=== PATIENT | male | born 1970 | race Hispanic/Latino ===

== ENCOUNTER 2025-02-19 17:32 | Emergency (ER) | payer BC, OTHER ==
[~2025-02-19] VITALS: Ht 167.6 cm; Wt 88.5 kg
--- NOTE | 2025-02-19 17:58 | ERN ---
ED Note History of Present Illness Stated Complaint: HYPERTENSION Chief Complaint: Hypertension Time Seen by MD: 17:33 Time Seen by Midlevel: 17:33 Dictation: The patient is a 54-year-old male with a history of diabetes, hypertension who presents to the emergency department with complaints of elevated blood pressure and generalized weakness onset yesterday. Patient reports he took his blood pressure this morning and it was in the 160s. Patient also reported chest pain yesterday that lasted about 2-3 hours. Reported pressure-like associated with shortness of breath. Patient denies any nausea or vomiting. Denies any fevers or cough. Denies any current chest pain. Allergies: Coded Allergies: No Known Drug Allergies (Unverified Allergy, Unknown, 02/19/25) Past Medical History Past Medical History: Diabetes-Type II, High Cholesterol, Hypertension Surgical History: None RN Note Reviewed/Agreed w/PFSH: Yes Review of System Dictation Constitutional: Negative for fever,chills, and weight loss Eyes: Negative for injury, pain,redness, and discharge ENT: Negative for injury,pain or swelling Cardiovascular: Negative for palpitations, and edema positive for chest pain Respiratory: Negative for shortness of breath, cough, and wheezing, Abdomen/GI: Negative for abdominal pain, nausea, vomiting, diarrhea, and constipation Back: Negative for injury and pain : Negative for injury, bleeding and discharge MS/Extremity: Negative for injury and deformity Skin: Negative for rash, and discoloration Neuro: Negative for headache, numbness, tingling, and seizure positive for weakness Psych: Negative for suicide ideation, homicidal ideation, and hallucinations Initial Vital Sign VS Vital Signs Date Time Temp Pulse Resp B/P (MAP) Pulse Ox O2 Delivery O2 Flow Rate FiO2 02/19/25 17:40 97.9 76 18 155/105 98 Room Air 0 02/19/25 18:35 21 Physical Exam Dictation Vital Signs reviewed General Appearance: Alert, oriented x 3, no acute distress, well developed, nourished. Head and Face: non-traumatic. Eyes: PERRL, pink conjunctivas, eyelid no trauma, anterior chamber with arcus senilis. Ears: Pinnas intact and no signs of trauma or erythema ear canals clear and no discharge TM no erythema Nose: No discharge, no bleeding. Oropharynx: Mouth normal, tongue pink. pharynx clear,no erythema, tonsils no exudates, no abscesses noted, mucous membrane moist Neck: Supple, non-tender, no thyromegaly, no masses, no JVD, no bruits Breast:Deferred Chest:No tenderness, no crepitus, no paradoxical movement, no retractions Lungs:Clear, well-ventilated, symmetric, no rales, no wheezing, no rhonchi, no stridor, good breath sounds bilaterally Heart: Regular rate, regular rhythm, no murmur, no gallops Vascular: no peripheral edema, Abdomen: Soft, positive bowel sounds, nondistended, no guarding, nontender, no rebound, no masses no hepatomegaly, no splenomegaly, no Olivo's sign, no hernias. Rectal: Deferred Genital: Deferred Neurological: Normal speech, motor function intact, sensory function intact , upper extremities equal in strength, lower extremities equal in strength Musculoskeletal: Neck nontender, full range of motion, back nontender, full range of motion, Extremities: nontender, full range of motion Skin: Color pink, dry, no turgor, no rash, no lacerations, no abrasions, no contusions. Lymphatic: Deferred Results (Laboratory/Radiology) Laboratory/Radiology Laboratory Tests Test 02/19/25 18:38 02/19/25 18:42 02/19/25 19:54 White Blood Count 6.4 K/uL (4.8-10.8) Red Blood Count 5.91 MIL/uL (4.50-6.20) Hemoglobin 16.8 g/dL (14.0-18.0) Hematocrit 49.5 % (42-54) Mean Corpuscular Volume 83.8 fL (79-99) Mean Corpuscular Hemoglobin 28.4 pg (27.0-33.0) Mean Corpuscular Hemoglobin Concent 33.9 g/dL (32.0-36.0) Red Cell Distribution Width 13.1 % (11.0-15.5) Platelet Count 246 K/uL (130-400) Mean Platelet Volume 10.9 fL (7.5-10.5) H Immature Granulocyte % (Auto) 0.2 % (0-1) Neutrophils (%) (Auto) 58.1 % (40.0-77.0) Lymphocytes (%) (Auto) 31.6 % (21.0-51.0) Monocytes (%) (Auto) 7.9 % (3.0-13.0) Eosinophils (%) (Auto) 1.9 % (0.0-8.0) Basophils (%) (Auto) 0.3 % (0.0-5.0) Neutrophils # (Auto) 3.7 K/uL (1.8-7.7) Lymphocytes # (Auto) 2.0 K/uL (1.0-4.8) Monocytes # (Auto) 0.5 K/uL (0.1-1.0) Eosinophils # (Auto) 0.12 K/uL (0.00-0.70) Basophils # (Auto) 0.02 K/uL (0.00-0.20) Absolute Immature Granulocyte (auto 0.01 K/uL (0-1) Nucleated Red Blood Cells 0.0 % (0.0-0.19) Sodium Level 140 mmol/L (136-145) Potassium Level 4.3 mmol/L (3.5-5.1) Chloride Level 104 mmol/L (101-111) Carbon Dioxide Level 27 mmol/L (21-32) Blood Urea Nitrogen 13 mg/dL (7-18) Creatinine 1.1 mg/dL (0.5-1.3) Glomerular Filtration Rate Calc 79 mL/min (>90) Random Glucose 128 mg/dL (70-105) H Total Calcium 8.5 mg/dL (8.5-10.1) Magnesium Level 2.20 mg/dL (1.80-2.40) Total Bilirubin 1.4 mg/dL (0.2-1.0) H Direct Bilirubin 0.1 mg/dL (0.0-0.3) Aspartate Amino Transf (AST/SGOT) 55 U/L (10-37) H Alanine Aminotransferase (ALT/SGPT) 43 U/L (12-78) Alkaline Phosphatase 83 U/L (50-136) Total Creatine Kinase 228 U/L (21-232) Troponin I High Sensitivity 5 ng/L (4-75) 7 ng/L (4-75) B-Type Natriuretic Peptide 14 pg/mL (0-100) Total Protein 7.7 g/dL (6.0-8.3) Albumin 3.9 g/dL (3.5-5.0) Lipase 32 U/L (16-77) Urine Color LIGHT-YELLOW (YELLOW) Urine Appearance CLEAR (CLEAR) Urine pH 5.5 (5.0-8.0) Urine Specific [place] 1.016 (1.001-1.031) Urine Protein NEGATIVE mg/dL (NEGATIVE) Urine Glucose (UA) NEGATIVE mg/dL (NEGATIVE) Urine Ketones NEGATIVE mg/dL (NEGATIVE) Urine Occult Blood NEGATIVE (NEGATIVE) Urine Nitrate NEGATIVE (NEGATIVE) Urine Bilirubin NEGATIVE mg/dL (NEGATIVE) Urine Urobilinogen 0.2 mg/dL (0.2-1.0) Urine Leukocyte Esterase NEGATIVE [place]/uL Urine RBC 0-1 /HPF (0-1) Urine WBC 2-5 /HPF (0-1) H Urine Squamous Epithelial Cells RARE /HPF (0-2) Urine Bacteria None /HPF (None Seen) Urine Opiates Screen NEGATIVE (NEGATIVE) Urine Barbiturates Screen NEGATIVE (NEGATIVE) Urine Phencyclidine Screen NEGATIVE (NEGATIVE) Urine Amphetamines Screen NEGATIVE (NEGATIVE) Urine Benzodiazepines Screen NEGATIVE (NEGATIVE) Urine Cocaine Screen NEGATIVE (NEGATIVE) Urine Marijuana (THC) Screen NEGATIVE (NEGATIVE) REASON: cp ORDERING PHYSICIAN: ABILIO MELTON [employer] PROCEDURE: CXR1VW - CHEST 1VW PORTABLE CHEST RADIOGRAPH INDICATION: cp COMPARISON: None FINDINGS: Heart size is normal. The pulmonary vascularity and stacy appear normal. No abnormal pulmonary parenchymal opacity or consolidation identified. No significant pleural effusion noted. No pneumothorax detected. IMPRESSION: No radiographic evidence for any acute cardiopulmonary process. Labs Reviewed?: Yes EKG: (+) rhythm (Sinus rhythm) EKG Comment: Date: 02/19/2025 Time:1801 Ventricular rate:66 MA interval:133 QRS duration:88 QT/QTc:376 EKG interpretation: Sinus rhythm Reviewed by ED Attending no STEMI ED Course ED Course Orders Procedure Category Date Status Time Cbc With Differential LAB 02/19/25 Complete 17:52 B-Type Natriuretic LAB 02/19/25 Complete Peptide 17:52 Chest 1vw RAD 02/19/25 Resulted 17:52 12 Lead Ekg Tracing- EKG 02/19/25 Complete Technical 17:52 Nitroglycerin 1gm PHA 02/19/25 Complete Oint (Nitroglycerin 1g 18:00 Magnesium LAB 02/19/25 Complete 17:52 Creatine Kinase, Total LAB 02/19/25 Complete 17:52 Troponin I High LAB 02/19/25 Complete Sensitivity 17:52 Aspirin 325mg Tab PHA 02/19/25 Complete (Aspirin 325mg Tab) 18:00 Urinalysis Profile LAB 02/19/25 Complete 17:52 Basic Metabolic Panel LAB 02/19/25 Complete 17:52 Lipase LAB 02/19/25 Complete 17:52 Hepatic Function Panel LAB 02/19/25 Complete 17:52 Drug Screen Urine LAB 02/19/25 Complete 18:08 Troponin I High LAB 02/19/25 Complete Sensitivity 19:33 Acetaminophen 500mg PHA 02/19/25 Complete Tab (Tylenol 500mg T 20:00 Current Medications Medications (Trade) Dose Ordered Sig/Paola Route PRN Reason Start Time Stop Time Status Last Admin Dose Admin Acetaminophen (TYLenol 500MG TAB) 1,000 mg ONCE ONCE PO 02/19/25 20:00 02/19/25 20:01 DC 02/19/25 19:57 Aspirin (Aspirin 325mg Tab) 325 mg ONCE ONCE PO 02/19/25 18:00 02/19/25 18:01 DC 02/19/25 18:45 Nitroglycerin (Nitroglycerin 1gm Oint) 1 inch ONCE ONCE TD 02/19/25 18:00 02/19/25 18:01 DC 02/19/25 18:45 Vital Signs Date Time Temp Pulse Resp B/P (MAP) Pulse Ox O2 Delivery O2 Flow Rate FiO2 02/19/25 19:49 97.9 62 18 121/83 98 Room Air* 0 02/19/25 18:35 68 18 155/100 96 Room Air* 0 02/19/25 17:40 97.9 76 18 155/105 98 Room Air 0 HEART Score Response (Comments) Value History: Moderate suspicion (+1) 1 EKG: Normal 0 Age: 45-65yrs (+1) 1 Risk Factors: 1-2 risk factors (+1) 1 Initial Troponin: Normal limit (0) 0 HEART Score Risk: Low Risk for MACE (1-3) Total 3 Medical Decision Making MDM MDM: The patient is a 54-year-old male with a history of diabetes, hypertension who presents to the emergency department with complaints of elevated blood pressure and generalized weakness onset yesterday. Patient reports he took his blood pressure this morning and it was in the 160s. Patient also reported chest pain yesterday that lasted about 2-3 hours. Reported pressure-like associated with shortness of breath. Patient denies any nausea or vomiting. Denies any fevers or cough. Denies any current chest pain. Patient reports he was seen by his primary doctor today and was informed that if blood pressure did improve to come to the ER. CBC showed no leukocytosis, no anemia, chemistry showed no electrolyte imbalance, slightly elevated total bilirubin, AST. Negative troponins x2, negative lipase urinalysis unremarkable, toxicology negative, chest x-ray showed no acute infiltrates. Patient is blood pressure improved. Patient currently no longer symptomatic. Denies any chest pain, abdominal pain, shortness of breath, weakness. Patient neurologically intact, nontender abdomen. Low risk heart score for cardiac etiology Patient nontoxic appearance. Stable vital signs. Will be discharged to follow up as primary doctor for continued monitoring and treatment of hypertension labs and imaging discussed with the patient who agrees to follow up with PCP. Differential diagnosis: ACS, gastritis, hypertensive urgency, electrolyte imbalance Need for hospitalization: Patient does not meet criteria for hospitalization. There are no social concerns with this patient. DX & DISP Disposition: Discharge Departure Impression: Primary Impression: Hypertension Additional Impression: Chest pain with low risk for cardiac etiology Condition: Stable Additional Instructions: Please follow up with your primary doctor in 1-2 days. If symptoms worsen please return to ER. FOLLOW-UP WITH PRIMARY CARE PROVIDER IN 1 TO 2 DAYS. TAKE MEDICATIONS DIRECTED HERE IN THE EMERGENCY ROOM. OKAY TO CONTINUE HOME MEDICATIONS UNLESS OTHERWISE DISCUSSED DURING YOUR VISIT IN THE EMERGENCY ROOM TODAY. RETURN TO YOUR NEAREST EMERGENCY ROOM IF SYMPTOMS WORSEN OR IF THERE IS NO IMPROVEMENT. CALL 911 IF YOU NEED IMMEDIATE ASSISTANCE. TAKE TYLENOL OR MOTRIN [id number] NEEDED AND IF NO CONTRAINDICATIONS ARE PRESENT. INCREASE ORAL HYDRATION. A WOUND CULTURE OR URINE CULTURE WAS ORDERED HERE IN THE EMERGE [facility] ROOM DEPARTMENT PLEASE FOLLOW-UP WITH PRIMARY CARE PROVIDER AND ADVISE THEM TO GET REPEAT PORTS FROM OUR FACILITY. IF YOU HAD ANY MORRO WRAP/SPLINTS THAT WERE APPLIED HERE, PLEASE DO NOT REMOVE THEM UNTIL YOU SEE YOUR PRIMARY CARE OR SPECIALTY. Referrals: SELF,REFERRAL (PCP) Time of Disposition: 20:37 I have reviewed the case, and I agree with, Diagnosis and Plan ABILIO MELTON February 19, 2025 17:58
--- NOTE | 2025-02-19 18:22 | HMCIMG ---
PORTABLE CHEST RADIOGRAPH INDICATION: cp COMPARISON: None FINDINGS: Heart size is normal. The pulmonary vascularity and stacy appear normal. No abnormal pulmonary parenchymal opacity or consolidation identified. No significant pleural effusion noted. No pneumothorax detected. IMPRESSION: No radiographic evidence for any acute cardiopulmonary process.
[2025-02-19] MEDS: NITROGLYCERIN 1GM OINT 1 INCH/1GM TD ONE (18:45)
[2025-02-19] MEDS: ASPIRIN 325MG TAB PO ONE (18:45)
[2025-02-19 19:01] LABS: BASOPHILS # (AUTO) 0.02 K/uL (0.00-0.20); BASOPHILS % (AUTO) 0.3 % (0.0-5.0); EOSINOPHILS # (AUTO) 0.12 K/uL (0.00-0.70); EOSINOPHILS % (AUTO) 1.9 % (0.0-8.0); HEMATOCRIT 49.5 % (42-54); IMMATURE GRANULOCYTE ABSOLUTE 0.01 K/uL (0-1); LYMPHOCYTES % (AUTO) 31.6 % (21.0-51.0); MEAN CORPUSCULAR HEMOGLOBIN 28.4 pg (27.0-33.0); MEAN CORPUSCULAR HGB CONC 33.9 g/dL (32.0-36.0); MEAN CORPUSCULAR VOLUME 83.8 fL (79-99); MONOCYTES # (AUTO) 0.5 K/uL (0.1-1.0); MONOCYTES % (AUTO) 7.9 % (3.0-13.0); NEUTROPHILS # (AUTO) 3.7 K/uL (1.8-7.7); NEUTROPHILS % (AUTO) 58.1 % (40.0-77.0); PLATELET COUNT (AUTO) 246 K/uL (130-400); RED BLOOD CELL COUNT(AUTO) 5.91 MIL/uL (4.50-6.20); RED CELL DISTRIBUTION WIDTH 13.1 % (11.0-15.5); WHITE BLOOD COUNT (AUTO) 6.4 K/uL (4.8-10.8)
[2025-02-19 19:04] LABS: APPEARANCE,URINE CLEAR (CLEAR); BILIRUBIN,URINE NEGATIVE (NEGATIVE); COLOR,URINE LIGHT-YELLOW (YELLOW); GLUCOSE, URINE (UA) NEGATIVE (NEGATIVE); KETONES,URINE NEGATIVE (NEGATIVE); LEUKOCYTE ESTERASE ,URINE NEGATIVE Leu/uL (NEGATIVE); NITRATE,URINE NEGATIVE (NEGATIVE); OCCULT BLOOD,URINE NEGATIVE (NEGATIVE); PH,URINE 5.5 (5.0-8.0); PROTEIN,URINE NEGATIVE (NEGATIVE); UROBILINOGEN,URINE 0.2 mg/dL (0.2-1.0)
[2025-02-19 19:08] LABS: ADD UA MICROSCOPIC YES
[2025-02-19 19:12] LABS: AMPHET/METH SCREEN,URINE NEGATIVE (NEGATIVE); BARBITURATE SCREEN, URINE NEGATIVE (NEGATIVE); BENZODIAZEPINES SCREEN,URINE NEGATIVE (NEGATIVE); CANNABINOID SCREEN,URINE NEGATIVE (NEGATIVE); COCAINE SCREEN,URINE NEGATIVE (NEGATIVE); OPIATE SCREEN,URINE NEGATIVE (NEGATIVE); PHENCYCLIDINE SCREEN,URINE NEGATIVE (NEGATIVE)
--- NOTE | 2025-02-19 19:16 | EKG ---
[facility] Test Date: 2025-02-19 Test Time: 18:01:37 Pat Name: SHAHID KAUR Department: [facility] Patient ID: [id number] Room: Gender: Clinic Office Assistant: [id number] [phone] 1970 Requested By: ABILIO MELTON Order Number: [id number] Reading MD: Hugo Randhawa Measurements Intervals [place] Rate: 66 P: -17 CT: 133 QRS: 8 QRSD: 88 T: 3 QT: 376 QTc: 395 Interpretive Statements Sinus rhythm No previous ECG available for comparison Electronically Signed On 02-20-2025 16:54:22 CDT by Hugo Randhawa Please click the below link to view image of tracing.
[2025-02-19 19:20] LABS: CREATININE 1.1 mg/dL (0.5-1.3); POTASSIUM 4.3 mmol/L (3.5-5.1)
[2025-02-19 19:22] LABS: MUCUS,URINE RARE LPF (None Seen); RBC,URINE 0-1 /HPF (0-1); SQUAMOUS EPITHELIAL CELL,UR RARE /HPF (0-2)
[2025-02-19 19:24] LABS: ALBUMIN 3.9 g/dL (3.5-5.0); BILIRUBIN,DIRECT 0.1 mg/dL (0.0-0.3); BILIRUBIN,TOTAL 1.4 mg/dL (0.2-1.0); MAGNESIUM 2.2 mg/dL (1.80-2.40); TOTAL PROTEIN, SERUM 7.7 g/dL (6.0-8.3)
[2025-02-19 19:25] LABS: B-TYPE NATRIURETIC PEPTIDE 14 pg/mL (0-100)
[2025-02-19] MEDS: acetaMINOPHEN 500 MG TABLET PO ONE (19:57)
[2025-02-19 20:45] VITALS: BP 121/76; PULSE 62; RESP 18; TEMP 97.9; O2SAT 98
== END 2025-02-19 20:48 | disposition home or self-care (01) ==
LOC: EDH 17:32
DX: I10 Essential (primary) hypertension (principal); R07.89 Other chest pain; E11.9 Type 2 diabetes mellitus without complications; E78.00 Pure hypercholesterolemia, unspecified
CPT/HCPCS: 36415; 71045; 80048; 80076; 80305; 81001; 82550; 83690; 83735; 83880; 84484; 85025; 93005; 99284

== ENCOUNTER 2025-03-18 15:56 | Observation (INO) | payer BC ==
[~2025-03-18] VITALS: Ht 167.6 cm; Wt 89.2 kg
[2025-03-18] MEDS ORDERED: acetaMINOPHEN 325 MG TAB PO PRN (17:30)
[2025-03-18] MEDS ORDERED: hydrALAZine 20MG/ML VIAL IV PRN (17:30)
[2025-03-18] MEDS ORDERED: NITROGLYCERIN 0.4 MG SL TAB SL PRN (17:30)
[2025-03-18] MEDS ORDERED: PoTASSium chloRIDE 20MEQ ER 20 MEQ ERTAB PO PRN (17:30)
[2025-03-18] MEDS ORDERED: PoTASSium chl 10% ELIXIR 20MEQ 20 MEQ/15 ML UDCUP PO PRN (17:30)
[2025-03-18] MEDS ORDERED: PoTASSium chloRIDE 20MEQ/100ML 100 ML IV PRN (17:30)
[2025-03-18] MEDS ORDERED: ZOLPidem TARTrate 5 MG TAB PO PRN (17:30)
[2025-03-18 17:38] LABS: BASOPHILS # (AUTO) 0.01 K/uL (0.00-0.20); BASOPHILS % (AUTO) 0.2 % (0.0-5.0); EOSINOPHILS # (AUTO) 0.08 K/uL (0.00-0.70); EOSINOPHILS % (AUTO) 1.4 % (0.0-8.0); HEMATOCRIT 50.1 % (42-54); IMMATURE GRANULOCYTE ABSOLUTE 0.02 K/uL (0-1); LYMPHOCYTES # (AUTO) 1.8 K/uL (1.0-4.8); LYMPHOCYTES % (AUTO) 32.1 % (21.0-51.0); MEAN CORPUSCULAR HEMOGLOBIN 28.1 pg (27.0-33.0); MEAN CORPUSCULAR HGB CONC 33.1 g/dL (32.0-36.0); MEAN CORPUSCULAR VOLUME 84.8 fL (79-99); MONOCYTES # (AUTO) 0.3 K/uL (0.1-1.0); MONOCYTES % (AUTO) 5.4 % (3.0-13.0); NEUTROPHILS # (AUTO) 3.4 K/uL (1.8-7.7); NEUTROPHILS % (AUTO) 60.5 % (40.0-77.0); PLATELET COUNT (AUTO) 237 K/uL (130-400); RED BLOOD CELL COUNT(AUTO) 5.91 MIL/uL (4.50-6.20); RED CELL DISTRIBUTION WIDTH 13.2 % (11.0-15.5); WHITE BLOOD COUNT (AUTO) 5.6 K/uL (4.8-10.8)
[2025-03-18 17:51] LABS: CREATININE 1.2 mg/dL (0.5-1.3); POTASSIUM 4.1 mmol/L (3.5-5.1)
[2025-03-18 17:58] VITALS: BP 143/90; PULSE 72; RESP 17; TEMP 97.9
[2025-03-18 18:00] LABS: ALBUMIN 3.9 g/dL (3.5-5.0); BILIRUBIN,TOTAL 1.6 mg/dL (0.2-1.0); TOTAL PROTEIN, SERUM 7.5 g/dL (6.0-8.3)
[2025-03-18 18:04] LABS: B-TYPE NATRIURETIC PEPTIDE 20 pg/mL (0-100)
[2025-03-18] MEDS: ENOXAPARIN SODIUM 100 MG/1 ML SQ ONE (18:14)
[2025-03-18] MEDS: TICAGrelor 90 MG TABLET PO SCH (18:14)
--- NOTE | 2025-03-18 18:20 | HMCIMG ---
CHEST 1VW HISTORY: Chest pain COMPARISON: 02/19/2025 FINDINGS: A frontal projection of the chest was obtained. No acute pulmonary infiltrates is seen. The heart is borderline enlarged. Prominent interstitial markings are seen. No evidence of aortic calcification is seen. IMPRESSION: 1. No acute pulmonary infiltrate is seen.
[2025-03-18] MEDS: acetaMINOPHEN 325 MG TAB PO PRN (18:23)
[2025-03-18] MEDS: INSULIN humuLIN R 100 UNIT/ML 3ML SQ SCH (20:33)
[2025-03-18] MEDS: metoPROLOL tartRATE 25 MG TAB PO SCH (20:38)
[2025-03-18] MEDS: atorVAStatin 40 MG TABLET PO SCH (20:38)
--- NOTE | 2025-03-18 20:47 | NUR ---
CALLED FOR A EPORT FLOOR NURSE NOT AVAIL AT THE MOMENT
[2025-03-18 21:20] VITALS: O2SAT 98
[2025-03-18] MEDS ORDERED: METO25TA6 PO (23:47)
[2025-03-18] MEDS ORDERED: METF-446 PO (23:49)
[2025-03-18] MEDS ORDERED: ATOR10 PO (23:49)
[2025-03-18] MEDS ORDERED: OLME20TA68 PO (23:53)
[2025-03-19] VITALS (12 sets, daily range): BP systolic 100–133; BP diastolic 62–87; PULSE 58–70; RESP 16–18; TEMP 96.7–98.1; O2SAT 96
--- NOTE | 2025-03-19 09:22 | HP ---
[facility] HISTORY AND PHYSICAL Date of Service: Mar 19, 2025 Time of Service: 09:13 HISTORY OF PRESENT ILLNESS: Date of service: 03/19/2025, patient was seen in [facility] room 202 54-year-old male with underlying history of hypertension, hyperlipidemia, type 2 diabetes mellitus, obesity, who presented as a direct admission from Dr. Naylor's cardiology clinic for further evaluation of chest pain and symptoms concerning for unstable angina. Patient was recently seen in [facility] ER last month for elevated blood pressure reading in the 180s accompanied by chest discomfort and shortness of breath. Serial troponins, BNP, x-ray and EKG was normal. Patient was given topical nitroglycerin and blood pressure improved. Patient states that he has been following up with Cardiology as outpatient. He gets intermittent blood pressure readings with systolic into the 180s. He gets some substernal chest discomfort as well. He states that episodes of chest discomfort have been progressing over the last two weeks. He has also noticed some fatigue and mild dyspnea on exertion with exertional activities. Patient currently works as a farm manager. Denies any syncopal episodes or presyncopal episodes. Denies any previous history of stroke. Reports family history of heart disease with father needing a pacemaker placement. Patient on bedside interview denies any active chest pain or chest discomfort. Patient overnight had serial cardiac troponins performed which has been negative x2. Patient was also loaded with Brilinta and received 90 mg of subcutaneous Lovenox yesterday close to 6:00 p.m.. Patient is currently awaiting 2D echocardiogram and there is tentative plans for cardiac catheterization today. We will monitor this patient closely under hospitalist service. REVIEW OF SYSTEMS CONSTITUTIONAL: Denies fevers, chills, or night sweats. No unintentional weight loss reported. NEUROLOGICAL: Denies headache, amaurosis fugax, motor weakness, sensory deficit, vertigo/spinning sensation, gait abnormalities, or tremors. ENT: No hearing loss, otalgia, otorrhea, rhinitis, rhinorrhea, hoarseness, or sore throat. CARDIOVASCULAR: Intermittent episodes of substernal chest discomfort PULMONARY: Denies any shortness of breath, cough, phlegm/sputum, hemoptysis, pleuritic chest pain. SLEEP: Denies morning headaches, daytime somnolence or napping. Denies difficulty falling asleep, staying asleep, waking from sleep. Denies knowledge of snoring. GASTROINTESTINAL: Denies any type of dysphagia to either liquids or solids. Denies nausea, vomiting, pyrosis, early satiety, abdominal pain, diarrhea, constipation, or changes in stool consistency or caliber. Denies coffee-ground emesis, hematemesis, hematochezia, or melanotic stools. GENITOURINARY: Denies frequency, urgency, nocturia, hematuria or incontinence (Storage/Irritative symptoms.) Low urinary stream, straining to void, urinary intermittency or hesitancy, splitting of the voiding stream, terminal dribbling. ENDOCRINOLOGIC: Denies polyuria, polydipsia, polyphagia or heat/cold intolerances. HEMATOLOGIC: Denies thrombophilia/previous clots, or coagulopathy/bleeding disorders. ONCOLOGIC: Denies personal history of malignancy. DERMATOLOGIC: Denies rashes or pruritus. PSYCHIATRIC: Denies any suicidal or homicidal ideation. Denies hallucinations. PAST MEDICAL HISTORY: Obesity, hypertension, hyperlipidemia, type 2 diabetes mellitus PAST SURGICAL HISTORY: Denies major surgical procedure PAST SOCIAL HISTORY: Patient denies active smoking or alcohol consumption, currently works as a farm labor, independent with ADLs and IADLs FAMILY HISTORY: Has a family history of pacemaker placement in father, brother from a CVA Allergies: No known drug allergies Home medications: Lipitor 20 mg daily, metformin 1000 mg twice daily, metoprolol tartrate 25 mg b.i.d., olmesartan 5 mg daily Coded Allergies: No Known Drug Allergies (Unverified Allergy, Unknown, 02/19/25) PHYSICAL EXAM GENERAL APPEARANCE: The patient is awake, alert, and oriented, in no acute cardiopulmonary distress. NEUROLOGICAL: Cranial nerves II-XII grossly intact. Motor is 5/5 in bilateral upper and lower extremities proximal to distal. No sensory deficits. HEENT: Face is symmetric. Pupils are equal and reactive. Extraocular movements are intact. NECK: Supple. No JVD. No thyromegaly. No submental, submandibular, pre- /postauricular, occipital or supraclavicular lymphadenopathy. CHEST: Normal chest expansion. No Telemetry. LUNGS: Absence of any rales, rhonchi or any wheezing. CARDIOVASCULAR: Regular. S1 and S2 normal. No appreciable rubs, murmurs or g allops. ABDOMEN: Soft, nontender, and nondistended. There is no rebound, voluntary gua rding, or rigidity. : Deferred. No [place]. EXTREMITIES: Non-edematous and not cyanotic. No clubbing. Good capillary refill. SKIN: No skin breakdown. Vital Sign (Last 24 Hours) 03/18/25 03/19/25 21:20 08:34 Temp 97.9 Pulse 62 Resp 16 B/P (MAP) 133/87 Pulse Ox 96 O2 Delivery Room Air O2 Flow Rate 0 FiO2 21 LABS: Laboratory: Test 03/19/25 05:47 03/18/25 21:12 03/18/25 17:32 Range/Units Whole Blood Glucose 142 H 70-110 MG/DL Troponin I High Sensitivity 5 4-75 ng/L White Blood Count 5.6 4.8-10.8 K/uL Red Blood Count 5.91 4.50-6.20 MIL/uL Hemoglobin 16.6 14.0-18.0 g/dL Hematocrit 50.1 42-54 % Mean Corpuscular Volume 84.8 79-99 fL Mean Corpuscular Hemoglobin 28.1 27.0-33.0 pg Mean Corpuscular Hemoglobin Concent 33.1 32.0-36.0 g/dL Red Cell Distribution Width 13.2 11.0-15.5 % Platelet Count 237 130-400 K/uL Mean Platelet Volume 10.6 H 7.5-10.5 fL Immature Granulocyte % (Auto) 0.4 0-1 % Neutrophils (%) (Auto) 60.5 40.0-77.0 % Lymphocytes (%) (Auto) 32.1 21.0-51.0 % Monocytes (%) (Auto) 5.4 3.0-13.0 % Eosinophils (%) (Auto) 1.4 0.0-8.0 % Basophils (%) (Auto) 0.2 0.0-5.0 % Neutrophils # (Auto) 3.4 1.8-7.7 K/uL Lymphocytes # (Auto) 1.8 1.0-4.8 K/uL Monocytes # (Auto) 0.3 0.1-1.0 K/uL Eosinophils # (Auto) 0.08 0.00-0.70 K/uL Basophils # (Auto) 0.01 0.00-0.20 K/uL Absolute Immature Granulocyte (auto 0.02 0-1 K/uL Nucleated Red Blood Cells 0.0 0.0-0.19 % Sodium Level 142 136-145 mmol/L Potassium Level 4.1 3.5-5.1 mmol/L Chloride Level 104 101-111 mmol/L Carbon Dioxide Level 32 21-32 mmol/L Blood Urea Nitrogen 14 7-18 mg/dL Creatinine 1.2 0.5-1.3 mg/dL Glomerular Filtration Rate Calc 71 >90 mL/min Random Glucose 215 H 70-105 mg/dL Total Calcium 9.0 8.5-10.1 mg/dL Total Bilirubin 1.6 H 0.2-1.0 mg/dL Aspartate Amino Transf (AST/SGOT) 33 10-37 U/L Alanine Aminotransferase (ALT/SGPT) 46 12-78 U/L Alkaline Phosphatase 80 50-136 U/L B-Type Natriuretic Peptide 20 0-100 pg/mL Total Protein 7.5 6.0-8.3 g/dL Albumin 3.9 3.5-5.0 g/dL Current Medications Medications (Trade) Dose Ordered Sig/Paola Route PRN Reason Start Time Stop Time Status Last Admin Dose Admin Acetaminophen (TYLenol 325MG TAB) 650 mg Q4H PRN PO TEMPERATURE GREATER THAN 101.5 03/18/25 17:30 04/17/25 17:29 Acetaminophen (TYLenol 325MG TAB) 650 mg Q6H PRN PO MILD PAIN (1-3) 03/18/25 17:30 04/17/25 17:29 03/18/25 18:23 650 MG Aspirin (Aspirin 81mg Ec Tab) 81 mg DAILY PO 03/19/25 09:00 04/18/25 08:59 Atorvastatin Calcium (LIPItor 40MG) 40 mg HS PO 03/18/25 21:00 04/17/25 20:59 03/18/25 20:38 40 MG Hydralazine HCl (APRESOLine 20MG INJ) 10 mg Q4H PRN IV ADMINISTER FOR SBP > 160 03/18/25 17:30 04/17/25 17:29 Insulin Human Regular (humuLIN R 100 UNIT/ML 3ML) INSULIN SLIDING SCAL... ACHS SQ 03/18/25 21:00 04/17/25 20:59 Isosorbide Mononitrate (Imdur 30mg Sr) 30 mg DAILY PO 03/19/25 09:00 04/18/25 08:59 Losartan Potassium (CozAAR 25MG TAB) 25 mg DAILY PO 03/19/25 09:00 04/18/25 08:59 Magnesium Sulfate 50 ml @ 0 mls/hr PROTOCOL IV 03/19/25 09:30 04/18/25 09:29 Metoprolol Tartrate (loprESSOR) 25 mg BID PO 03/18/25 21:00 04/17/25 20:59 03/18/25 20:38 25 MG Nitroglycerin (Nitrostat) 0.4 mg AD PRN SL CHEST PAIN 03/18/25 17:30 04/17/25 17:29 Ondansetron HCl (zoFRAN 4MG INJ) 4 mg Q6H PRN IVP NAUSEA/VOMITING 03/19/25 09:30 04/18/25 09:29 Potassium Chloride 100 ml @ 100 mls/hr AD PRN IV POTASSIUM PROTOCOL 03/18/25 17:30 04/17/25 17:29 Potassium Chloride (K-Dur/Klor-Con 20meq) 20 meq AD PRN PO POTASSIUM PROTOCOL 03/18/25 17:30 04/17/25 17:29 Potassium Chloride (KCl 10% Elixir 20meq/15ml) 20 meq AD PRN PO POTASSIUM PROTOCOL 03/18/25 17:30 04/17/25 17:29 Ticagrelor (BRILinta) 180 mg ONCE PO 03/18/25 17:30 03/19/25 09:05 DC 03/18/25 18:14 180 MG Zolpidem Tartrate (AmbIEN) 5 mg HS PRN PO INSOMNIA/SLEEP 03/18/25 17:30 04/17/25 17:29 DIAGNOSTICS / RADIOLOGY: SERVICE 1713 REASON: CP ORDERING PHYSICIAN: KARIE NAYLOR MD PROCEDURE: CXR1VW - CHEST 1VW CHEST 1VW HISTORY: Chest pain COMPARISON: 02/19/2025 FINDINGS: A frontal projection of the chest was obtained. No acute pulmonary infiltrates is seen. The heart is borderline enlarged. Prominent interstitial markings are seen. No evidence of aortic calcification is seen. IMPRESSION: 1. No acute pulmonary infiltrate is seen. DICTATED BY: DAVID MCNULTY MD DATE: 03/18/251816 ELECTRONICALLY SIGNED BY: DAVID MCNULTY MD DATE: 03/18/251819 ASSESSMENT: Unstable angina, POA Hypertension, POA Hyperlipidemia, POA Obesity, POA Type 2 diabetes mellitus, POA Suspected and untreated obstructive sleep apnea, POA PLAN: Patient will continue with close admission in cardiac telemetry floor Patient to continue with cardiac medications including aspirin 81 mg daily, metoprolol tartrate 25 mg twice daily, isosorbide mononitrate 30 mg daily, losartan has been substituted for olmesartan at 25 mg daily We will follow up results of 2D echocardiogram There is plans for cardiac catheterization/coronary angiogram today given symptoms concerning for unstable angina, we will follow up results We will maintain potassium greater than four and magnesium greater than two We will check TSH, A1c and lipid panel We will follow up recommendations by Dr. Naylor with Cardiology Patient will benefit from outpatient sleep study, we will have primary care provider refer patient for sleep study to rule out obstructive sleep apnea, patient reports having snoring at night and has risk factors including obesity, this was discussed with patient in detail All labs will be repeated in the morning Date of service: 03/19/2025 Plan of care was discussed with patient at bedside, Reji Pisano MD Advanced Care Planning: Which of the following were discussed: Hospice care: Yes __ No _X_ Therapeutic options: Yes _X_ No __ Advance directives: Yes __X No __ Other discussions: Discussed with who?: Patient Voluntary nature of this service was explained to the patient? Yes _x_ No __ Amount of time spent: 20 minutes REJI PISANO MD Mar 19, 2025 09:22
[2025-03-19] MEDS: ISOSORBIDE MONO 30MG SR TAB PO SCH (09:25)
[2025-03-19] MEDS: ASPIRIN 81 MG EC TAB PO SCH (09:25)
[2025-03-19] MEDS: LoSARTan 25 MG TABLET PO SCH (09:25)
[2025-03-19] MEDS ORDERED: ondanSETRON 4MG INJ IVP PRN (09:30)
[2025-03-19] MEDS ORDERED: MAGNESIUM 2GM PREMIX 50ML 50 ML IV SCH (09:30)
[2025-03-19 09:51] LABS: INR 1.15 (0.85-1.15)
[2025-03-19 09:53] LABS: PARTIAL THROMBOPLASTIN TIME 30.4 SEC (26.3-35.5)
[2025-03-19 09:56] LABS: ALBUMIN 3.7 g/dL (3.5-5.0); BASOPHILS # (AUTO) 0.01 K/uL (0.00-0.20); BASOPHILS % (AUTO) 0.2 % (0.0-5.0); BILIRUBIN,TOTAL 1.3 mg/dL (0.2-1.0); CREATININE 1.1 mg/dL (0.5-1.3); EOSINOPHILS # (AUTO) 0.08 K/uL (0.00-0.70); EOSINOPHILS % (AUTO) 1.9 % (0.0-8.0); HEMATOCRIT 49.5 % (42-54); IMMATURE GRANULOCYTE ABSOLUTE 0.03 K/uL (0-1); LYMPHOCYTES # (AUTO) 1.3 K/uL (1.0-4.8); MEAN CORPUSCULAR HEMOGLOBIN 28.3 pg (27.0-33.0); MEAN CORPUSCULAR HGB CONC 33.5 g/dL (32.0-36.0); MEAN CORPUSCULAR VOLUME 84.3 fL (79-99); MONOCYTES # (AUTO) 0.2 K/uL (0.1-1.0); MONOCYTES % (AUTO) 5.8 % (3.0-13.0); NEUTROPHILS # (AUTO) 2.5 K/uL (1.8-7.7); NEUTROPHILS % (AUTO) 60.4 % (40.0-77.0); PLATELET COUNT (AUTO) 214 K/uL (130-400); POTASSIUM 4.3 mmol/L (3.5-5.1); RED BLOOD CELL COUNT(AUTO) 5.87 MIL/uL (4.50-6.20); RED CELL DISTRIBUTION WIDTH 13.1 % (11.0-15.5); THYROID STIMULATING HORMONE 1.23 uIU/mL (0.36-3.74); TOTAL PROTEIN, SERUM 7.1 g/dL (6.0-8.3); WHITE BLOOD COUNT (AUTO) 4.2 K/uL (4.8-10.8)
--- NOTE | 2025-03-19 10:54 | NUR ---
DCP: HOME Pt works at [employer], states he remains independent of all his ADLS, drives, needs no DME or in home care services at this time. Lives at home with Megha Vargas [phone]. PCP is Laurent Gregory and uses [facility] for rx needs. Denies dc needs and will return home at dc Addendum: 03/19/25 at 1054 by MICHELLE THURMAN SS Amended: Links added.
[2025-03-19] MEDS ORDERED: 0.9% NACL 500ML IV.SOLN 500 ML IV SCH (11:30)
--- NOTE | 2025-03-19 13:28 | NUR ---
TRANSFER-PROVIDER RELATIONS COORDINATOR PROVIDER RELATIONS COORDINATOR TEAM HERE TO TAKE PATIENT DOWN TO PROVIDER RELATIONS COORDINATOR FOR PROCEDURE(S). PATIENT ALERT AND ORIENTED AWARE OF SITUATION. PATIENT TRANSFERRED TO PROVIDER RELATIONS COORDINATOR.
[2025-03-19] MEDS ORDERED: HEParin 10,000 UNIT/10ML (1,000 UNIT/ML) VIAL ONE (13:41)
[2025-03-19] MEDS ORDERED: LIDOCAINE HCL 400MG/20ML VIAL ONE (13:41)
[2025-03-19] MEDS ORDERED: HEParin-NS 1,000 UNIT/500 ML 1,000 ML IV ONE (13:42)
[2025-03-19] MEDS ORDERED: NITROGLYCERIN 50MG VIAL ONE (13:42)
[2025-03-19] MEDS ORDERED: IOHEXOL 350 MG/ML 100ML INFUS..BTL IV ONE (13:43)
[2025-03-19] MEDS ORDERED: FENTanyl CITRate PF 50 MCG/1 ML 2ML VIAL ONE (13:56)
[2025-03-19] MEDS ORDERED: MIDAZOLAM HCL 1 MG/ML 2ML VIAL ONE ×2 (13:56→14:12)
[2025-03-19] MEDS ORDERED: BIVALIRUDIN 250 MG/VIAL IV ONE (14:10)
--- NOTE | 2025-03-19 14:31 | PN ---
PROGRESS NOTE PROBLEM LIST: Chest pain Hypertension line diabetes mellitus Dyslipidemia INTERIM HISTORY OF PRESENT ILLNESS: Patient was seen this afternoon after being admitted and cardiac enzymes have remained negative. BNP was also normal. Other laboratory data was unremarkable. EKG remained stable and telemetry remained stable. Patient did not have any recurrent symptoms of pain pressure tightness. REVIEW OF SYSTEMS: No fever, headache, chest pain, abdominal pain, nausea, vomiting, or diarrhea. VITAL SIGNS Vital Signs Date Time Temp Pulse Resp B/P (MAP) Pulse Ox O2 Delivery O2 Flow Rate FiO2 03/19/25 12:00 98.1 69 16 116/77 97 Room Air 03/19/25 10:00 0 21 Laboratory Tests 03/18/25 17:32 03/19/25 09:29 LABS/MEDS Laboratory Tests Test 03/18/25 17:32 03/18/25 20:29 03/18/25 21:12 03/19/25 05:47 White Blood Count 5.6 K/uL (4.8-10.8) Red Blood Count 5.91 MIL/uL (4.50-6.20) Hemoglobin 16.6 g/dL (14.0-18.0) Hematocrit 50.1 % (42-54) Mean Corpuscular Volume 84.8 fL (79-99) Mean Corpuscular Hemoglobin 28.1 pg (27.0-33.0) Mean Corpuscular Hemoglobin Concent 33.1 g/dL (32.0-36.0) Red Cell Distribution Width 13.2 % (11.0-15.5) Platelet Count 237 K/uL (130-400) Mean Platelet Volume 10.6 fL (7.5-10.5) H Immature Granulocyte % (Auto) 0.4 % (0-1) Neutrophils (%) (Auto) 60.5 % (40.0-77.0) Lymphocytes (%) (Auto) 32.1 % (21.0-51.0) Monocytes (%) (Auto) 5.4 % (3.0-13.0) Eosinophils (%) (Auto) 1.4 % (0.0-8.0) Basophils (%) (Auto) 0.2 % (0.0-5.0) Neutrophils # (Auto) 3.4 K/uL (1.8-7.7) Lymphocytes # (Auto) 1.8 K/uL (1.0-4.8) Monocytes # (Auto) 0.3 K/uL (0.1-1.0) Eosinophils # (Auto) 0.08 K/uL (0.00-0.70) Basophils # (Auto) 0.01 K/uL (0.00-0.20) Absolute Immature Granulocyte (auto 0.02 K/uL (0-1) Nucleated Red Blood Cells 0.0 % (0.0-0.19) Sodium Level 142 mmol/L (136-145) Potassium Level 4.1 mmol/L (3.5-5.1) Chloride Level 104 mmol/L (101-111) Carbon Dioxide Level 32 mmol/L (21-32) Blood Urea Nitrogen 14 mg/dL (7-18) Creatinine 1.2 mg/dL (0.5-1.3) Glomerular Filtration Rate Calc 71 mL/min (>90) Random Glucose 215 mg/dL (70-105) H Total Calcium 9.0 mg/dL (8.5-10.1) Total Bilirubin 1.6 mg/dL (0.2-1.0) H Aspartate Amino Transf (AST/SGOT) 33 U/L (10-37) Alanine Aminotransferase (ALT/SGPT) 46 U/L (12-78) Alkaline Phosphatase 80 U/L (50-136) Troponin I High Sensitivity 6 ng/L (4-75) 5 ng/L (4-75) B-Type Natriuretic Peptide 20 pg/mL (0-100) Total Protein 7.5 g/dL (6.0-8.3) Albumin 3.9 g/dL (3.5-5.0) Whole Blood Glucose 101 MG/DL (70-110) 142 MG/DL (70-110) H Test 03/19/25 09:29 03/19/25 12:08 White Blood Count 4.2 K/uL (4.8-10.8) L Red Blood Count 5.87 MIL/uL (4.50-6.20) Hemoglobin 16.6 g/dL (14.0-18.0) Hematocrit 49.5 % (42-54) Mean Corpuscular Volume 84.3 fL (79-99) Mean Corpuscular Hemoglobin 28.3 pg (27.0-33.0) Mean Corpuscular Hemoglobin Concent 33.5 g/dL (32.0-36.0) Red Cell Distribution Width 13.1 % (11.0-15.5) Platelet Count 214 K/uL (130-400) Mean Platelet Volume 10.6 fL (7.5-10.5) H Immature Granulocyte % (Auto) 0.7 % (0-1) Neutrophils (%) (Auto) 60.4 % (40.0-77.0) Lymphocytes (%) (Auto) 31.0 % (21.0-51.0) Monocytes (%) (Auto) 5.8 % (3.0-13.0) Eosinophils (%) (Auto) 1.9 % (0.0-8.0) Basophils (%) (Auto) 0.2 % (0.0-5.0) Neutrophils # (Auto) 2.5 K/uL (1.8-7.7) Lymphocytes # (Auto) 1.3 K/uL (1.0-4.8) Monocytes # (Auto) 0.2 K/uL (0.1-1.0) Eosinophils # (Auto) 0.08 K/uL (0.00-0.70) Basophils # (Auto) 0.01 K/uL (0.00-0.20) Absolute Immature Granulocyte (auto 0.03 K/uL (0-1) Nucleated Red Blood Cells 0.0 % (0.0-0.19) Prothrombin Time 12.0 SEC (9.6-11.6) H Prothromb Time International Ratio 1.15 (0.85-1.15) Activated Partial Thromboplast Time 30.4 SEC (26.3-35.5) Sodium Level 139 mmol/L (136-145) Potassium Level 4.3 mmol/L (3.5-5.1) Chloride Level 106 mmol/L (101-111) Carbon Dioxide Level 30 mmol/L (21-32) Blood Urea Nitrogen 12 mg/dL (7-18) Creatinine 1.1 mg/dL (0.5-1.3) Glomerular Filtration Rate Calc 79 mL/min (>90) Random Glucose 148 mg/dL (70-105) H Hemoglobin A1c 7.0 % (4.0-6.0) H Estimated Average Glucose (eAG) 154 mg/dL (70-126) H Total Calcium 8.7 mg/dL (8.5-10.1) Magnesium Level 2.00 mg/dL (1.80-2.40) Total Bilirubin 1.3 mg/dL (0.2-1.0) H Aspartate Amino Transf (AST/SGOT) 21 U/L (10-37) Alanine Aminotransferase (ALT/SGPT) 41 U/L (12-78) Alkaline Phosphatase 73 U/L (50-136) Total Protein 7.1 g/dL (6.0-8.3) Albumin 3.7 g/dL (3.5-5.0) Triglycerides Level 201 mg/dL (30-200) H Cholesterol Level 114 mg/dL (<200) LDL Cholesterol 60 mg/dL (0-99) HDL Cholesterol 32 mg/dL (29-71) Thyroid Stimulating Hormone (TSH) 1.23 uIU/mL (0.36-3.74) Whole Blood Glucose 142 MG/DL (70-110) H Current Medications Acetaminophen 650 mg Q4H PRN PO; Start 03/18/25 at 17:30; Stop 04/17/25 at 17:29 Acetaminophen 650 mg Q6H PRN PO Last administered on 03/18/25at 18:23; Start 03/18/25 at 17:30; Stop 04/17/25 at 17:29 Zolpidem Tartrate 5 mg HS PRN PO; Start 03/18/25 at 17:30; Stop 04/17/25 at 17:29 Nitroglycerin 0.4 mg AD PRN SL; Start 03/18/25 at 17:30; Stop 04/17/25 at 17:29 Hydralazine HCl 10 mg Q4H PRN IV; Start 03/18/25 at 17:30; Stop 04/17/25 at 17:29 Aspirin 81 mg DAILY PO Last administered on 03/19/25at 09:25; Start 03/19/25 at 09:00; Stop 04/18/25 at 08:59 Ticagrelor 180 mg ONCE PO Last administered on 03/18/25at 18:14; Start 03/18/25 at 17:30; Stop 03/19/25 at 09:05; Status DC Metoprolol Tartrate 25 mg BID PO Last administered on 03/19/25at 09:25; Start 03/18/25 at 21:00; Stop 04/17/25 at 20:59 Isosorbide Mononitrate 30 mg DAILY PO Last administered on 03/19/25at 09:25; Start 03/19/25 at 09:00; Stop 04/18/25 at 08:59 Losartan Potassium 25 mg DAILY PO Last administered on 03/19/25at 09:25; Start 03/19/25 at 09:00; Stop 04/18/25 at 08:59 Atorvastatin Calcium 40 mg HS PO Last administered on 03/18/25at 20:38; Start 03/18/25 at 21:00; Stop 04/17/25 at 20:59 Enoxaparin Sodium 90 mg ONCE ONCE SQ Last administered on 03/18/25at 18:14; Start 03/18/25 at 17:30; Stop 03/18/25 at 17:31; Status DC Insulin Human Regular INSULIN SLIDING SCAL... ACHS SQ; Start 03/18/25 at 21:00; Stop 04/17/25 at 20:59 Potassium Chloride 100 ml @ 100 mls/hr AD PRN IV; Start 03/18/25 at 17:30; Stop 04/17/25 at 17:29 Potassium Chloride 20 meq AD PRN PO; Start 03/18/25 at 17:30; Stop 04/17/25 at 17:29 Potassium Chloride 20 meq AD PRN PO; Start 03/18/25 at 17:30; Stop 04/17/25 at 17:29 Ondansetron HCl 4 mg Q6H PRN IVP; Start 03/19/25 at 09:30; Stop 04/18/25 at 09:29 Magnesium Sulfate 50 ml @ 0 mls/hr PROTOCOL IV; Start 03/19/25 at 09:30; Stop 04/18/25 at 09:29 Famotidine 20 mg BID PO; Start 03/19/25 at 21:00; Stop 03/19/25 at 09:26; Status DC Sodium Chloride 500 ml @ 0 mls/hr Q0M IV; Start 03/19/25 at 11:30; Stop 04/18/25 at 11:29 Lidocaine HCl 20 ml STK-MED ONCE .ROUTE; Start 03/19/25 at 13:41; Stop 03/19/25 at 13:41; Status DC Heparin Sodium (Porcine) 10,000 unit STK-MED ONCE .ROUTE; Start 03/19/25 at 13:41; Stop 03/19/25 at 13:41; Status DC Heparin Sodium/ Sodium Chloride 1,000 ml @ As Directed STK-MED ONCE IV; Start 03/19/25 at 13:42; Stop 03/19/25 at 13:42; Status DC Nitroglycerin 50 mg STK-MED ONCE .ROUTE; Start 03/19/25 at 13:42; Stop 03/19/25 at 13:42; Status DC Iohexol 35,000 mg STK-MED ONCE IV; Start 03/19/25 at 13:43; Stop 03/19/25 at 13:43; Status DC Fentanyl Citrate 100 mcg STK-MED ONCE .ROUTE; Start 03/19/25 at 13:56; Stop 03/19/25 at 13:56; Status DC Midazolam HCl 2 mg STK-MED ONCE .ROUTE; Start 03/19/25 at 13:56; Stop 03/19/25 at 13:56; Status DC Bivalirudin 250 mg STK-MED ONCE IV; Start 03/19/25 at 14:10; Stop 03/19/25 at 14:10; Status DC Midazolam HCl 2 mg STK-MED ONCE .ROUTE; Start 03/19/25 at 14:12; Stop 03/19/25 at 14:13; Status DC PHYSICAL EXAMINATION: GENERAL: No acute distress. HEENT: Normocephalic, atraumatic. CARDIAC: Positive S1 and S2. No murmurs. LUNGS: Clear to auscultation bilaterally. ABDOMEN: Bowel sounds present, soft, nontender. EXTREMITIES: No edema bilaterally. NEUROLOGIC: Cranial nerves 2-12 grossly intact. PSYCHIATRIC: Calm. TELEMETRY: Sinus rhythm ASSESSMENT: Chest pain consistent with unstable angina PLAN: Patient was admitted from the clinic and he has had no further symptoms of chest pain yesterday having last night or this morning. The patient was seen before coronary angiography. Informed consent was obtained. All questions were answered. Patient had coronary angiogram done later in the afternoon which revealed nonobstructive disease. I think at this time patient had slow flow and would do well with the attempts at use of ranolazine to see beat that it helps with symptoms. Patient can be dismissed home later today. KARIE BERRIOS MD Mar 19, 2025 14:31
--- NOTE | 2025-03-19 14:35 | PRN ---
Left Heart Cath-[facility] PROCEDURE: 1. Right common femoral arterial sheath placement. 2. Selective coronary angiogram. 3. Left heart catheterization. 4. Left ventriculogram. 5. Conscious sedation INDICATIONS: Unstable angina DESCRIPTION OF PROCEDURE: The patient was brought to the catheterization suite and prepped and draped in sterile fashion. An IV was started, if not already in place and both groins were exposed for arterial access. 1% lidocaine was used for local anesthesia and then a micropuncture kit was used to gain access and once free-flowing blood was seen, modified Seldinger technique was utilized to place a 6 Tajik sheath into the right common femoral artery. Next, preformed JL4 and JR4 Catheters were then used to selectively engage the eyak coronary vessels and multiple hand contrast injections were performed in different views to define the coronary anatomy. Next, a six Tajik angled pigtail catheter was used to cross the aortic valve. Pressure measurements were obtained in the left ventriculogram was in the 30 METZGER position. Next, pullback method was performed. At the end of the case, sheath was pulled with the use of a Mynx device for closure of arteriotomy site. No complications occurred. FINDINGS: The left main artery bifurcates in the LAD and left circumflex in his free of any significant stenosis. The left anterior descending artery and its diagonal branch system have no stenosis present. The left circumflex artery is a codominant system giving rise to the left posterolateral branch. Obtuse marginal branch system is free of any significant disease. Left circumflex artery and left posterolateral branch are free of any significant disease. The right coronary artery is a codominant system during rise to the PDA. There was no stenosis noted in the RCA or PDA. There is slow flow noted in the epicardial system. There was no evidence of aortic stenosis or mitral regurgitation. LVEDP is normal. RECOMMENDATIONS: PATIENT CAN BE DISMISSED HOME LATER TODAY INITIATE RANOLAZINE THERAPY AT 500 MG TWICE DAILY CONTINUE WITH HOME MEDICATIONS NO HEAVY LIFTING 5 LB OR GREATER FOR THREE DAYS NO DRIVING FOR 24 HOURS KARIE BERRIOS MD Mar 19, 2025 14:35
--- NOTE | 2025-03-19 16:27 | DS ---
Discharge Summary Hospital Course Summary: Date of service: 03/19/2025 Date of discharge: 03/19/2025 Hospital course: This is a 54-year-old male with underlying history of hypertension, hyperlipidemia, type 2 diabetes mellitus, obese who was admitted from Dr. Naylor's clinic for evaluation of chest pain and symptoms concerning for unstable angina. While hospitalized, cardiac enzymes were negative x 2. Patient underwent cardiac catheterization by Dr. Naylor on 03/19/2025 which showed no significant coronary artery disease. Recommendations by Dr. Naylor for patient to be started on ranolazine 500 mg twice daily and a written prescription on ranolazine was provided by Dr. Naylor for discharge. Patient was seen postprocedure with no further episodes of chest pain, shortness of breath and Cardiology has recommended for patient to be discharged close to 1800 today post catheterization. Patient to follow up with his primary care provider in 5-7 days. Patient has symptoms of uncontrolled sleep apnea, he will benefit from outpatient sleep study and if sleep apnea is confirmed, patient will benefit from CPAP therapy. Patient to keep close outpatient follow up with Dr. Naylor in 1-2 weeks. Patient to follow up with Dr. Naylor for results of 2D echocardiogram performed this admission. Patient to continue with all his home medications on discharge including ant ihypertensives. He will hold metformin for 48 hours post cardiac catheterization. He can resume metformin on the evening of 03/21/2025. This was discussed in detail with the patient. Cargo Surveyor(s): Cardiology: Dr. Naylor Procedure(s): Left Heart Cath-[facility] PROCEDURE: 1. Right common femoral arterial sheath placement. 2. Selective coronary angiogram. 3. Left heart catheterization. 4. Left ventriculogram. 5. Conscious sedation INDICATIONS: Unstable angina FINDINGS: The left main artery bifurcates in the LAD and left circumflex in his free of any significant stenosis. The left anterior descending artery and its diagonal branch system have no stenosis present. The left circumflex artery is a codominant system giving rise to the left posterolateral branch. Obtuse marginal branch system is free of any significant disease. Left circumflex artery and left posterolateral branch are free of any significant disease. The right coronary artery is a codominant system during rise to the PDA. There was no stenosis noted in the RCA or PDA. There is slow flow noted in the epicardial system. There was no evidence of aortic stenosis or mitral regurgitation. LVEDP is normal. RECOMMENDATIONS: PATIENT CAN BE DISMISSED HOME LATER TODAY INITIATE RANOLAZINE THERAPY AT 500 MG TWICE DAILY CONTINUE WITH HOME MEDICATIONS NO HEAVY LIFTING 5 LB OR GREATER FOR THREE DAYS NO DRIVING FOR 24 HOURS KARIE NAYLOR MD Assessment/Plan: ASSESSMENT: Unstable angina, POA Hypertension, POA Hyperlipidemia, POA Obesity, POA Type 2 diabetes mellitus, POA Suspected and untreated obstructive sleep apnea, POA PLAN: Cardiac catheterization performed by Dr. Naylor showed no significant coronary artery disease Patient will be started on Ranexa 500 mg twice daily as outpatient for manag ement of chest pain Patient to continue with rest of the home medications including olmesartan, and metoprolol tartrate 25 mg b.i.d. I would recommend PCP to refer patient for sleep study to assess for sleep apnea, and patient to be started on CPAP therapy in case sleep apnea is confirmed Patient will keep close outpatient follow up with Dr. Naylor in 1-2 weeks, patient to follow up for results of 2D echocardiogram Patient will hold metformin for 48 hours post cardiac catheterization, he can resume metformin for the evening dose on 03/21/2025 Patient was advised on avoiding driving for 24 hours post cardiac catheterization, he should not be lifting anything more than five pounds for the next three days post cardiac catheterization Home Medications: Reported Medications Olmesartan Medoxomil (Olmesartan Medoxomil) 20 Mg Tablet, 5 MG PO DAILY for 30 Days, #30 TAB 0 Refills 03/18/25 Atorvastatin Calcium (LIPITOR) 20 Mg Tab, 1 TAB PO DAILY for 30 Days, #30 TAB 0 Refills 03/18/25 Metformin HCl (Metformin HCl) 1,000 Mg Tablet, 1 TAB PO BID for 30 Days, #60 TAB 0 Refills 03/18/25 Metoprolol Tartrate (Metoprolol Tartrate) 25 Mg Tablet, 1 TAB PO BID for 30 Days, #60 TAB 0 Refills 03/18/25 Time spent arranging discharge: 31-60 minutes RAIN JARVIS MD Mar 19, 2025 16:27
--- NOTE | 2025-03-19 16:31 | HMCSR ---
APPROVED REPORT EXAM: Two-dimensional and M-mode echocardiogram with Doppler and color Doppler. INDICATION ICD: Unstable angina I20.0 2D Dimensions RVDd3.5 cmLVEF(%)43.0 (>50%)LVED Vol(simp.)84.0 mL IVSd1.2 (0.7-1.1cm)FS(%)21 %LVES Vol(simp.)43.0 mL LVDd4.5 (3.8-5.6cm)LA (2D)3.8 (1.6-4.0cm)LVEF(%, simp.)48 % PWd1.2 (0.7-1.1cm)Ao Root(2D)3.1 (2.0-3.7cm)LA ESV INDEX (BP)16.18 mL/m2 IVSs1.5 cmLVOT diam2.2 (1.8-2.4cm) LVDs3.6 (2.5-4.0cm)IVC diam1.8 cm PWs1.8 cm Deformation Strain Apical 4-14.3 % Apical 2-15.3 % Apical 3-13.5 % Global Strain-14.3 % M-Mode Dimensions EPSS0.8 cm LA (MM)3.8 (1.6-4.0cm) Ao Root(MM)3.5 (2.0-3.7cm) Aortic Valve AoV Vmax0.9 m/Jaci Peak GR3.4 mmHgLVOT Vmax0.8 m/s AoV VTI0.2 mAo Mean GR2.1 mmHgLVOT VTI0.16 m MAITE (VMAX)3.12 cm2AVA (VTI) 3.3 cm2 Mitral Valve MV E Vmax53.3 cm/sDECEL Egim021 ms MV A Vmax76.7 cm/sP 1/2 T51 ms E/A ratio0.7MVA (PHT)4.3 cm2 TDI E/E' [id number]/E' [id number] Medial E' Peak V3.50 cm/sLateral E' Peak V4.46 cm/s Pulmonary Valve PV Vmax1.1 m/sPV VTI0.23 mPV Mean GR2.6 mmHg PV Peak GR4.7 mmHg Tricuspid Valve TR Vmax1.4 m/sRAP (EST) 3 [id number] mmHg TR Peak GR7.8 mmHg Left Ventricle The left ventricle is normal size. GLS -14.0% Mild concentric left ventricular hypertrophy. LVEF is 5 0%. Left ventricular filling pattern is normal for age. Right Ventricle The right ventricle is normal size. The right ventricular systolic function is normal. Atria The left atrium size is normal. The right atrium size is normal. Aortic Valve The aortic valve is normal in structure. No aortic regurgitation is present. There is no aortic valvu lar stenosis. Mitral Valve The mitral valve is normal in structure. Mitral regurgitation is trace There is no mitral valve steno sis. Tricuspid Valve The tricuspid valve is normal in structure. There is trace of tricuspid valve regurgitation noted. Pulmonic Valve Pulmonic valve is not well visualized. There is no pulmonic valvular regurgitation. Great Vessels The aortic root is normal in size. The IVC is normal in size and collapses >50% with inspiration. Pericardium There is no pericardial effusion. Other Information Quality : Adequate Conclusion Technically difficult study. The left ventricle is normal size. LVEF is 50-55%. Mild concentric left ventricular hypertrophy. Left ventricular filling pattern is normal for age. The right ventricular systolic function is normal. Both atria are normal in size. No hemodynamically significant valvular abnormalities. There is no pericardial effusion.
--- NOTE | 2025-03-19 18:18 | NUR ---
DISCHARGE DISCHARGE DELAYED DUE TO DR. BERRIOS STATING PATIENT MAY BE DISCHARGED AFTER 1800. 1818-DISCHARGE INSTRUCTIONS GIVEN TO PATIENT. PATIENT VERBALIZED KNOWLEDGE AND UNDERSTANDING. PRESCRIPTION SCRIPT GIVEN TO PATIENT. PATIENT KNOWS NEED TO FOLLOW UP WITH DOCTORS. PATIENT'S PERSONAL BELONGINGS GATHERED AND ARE BACK WITH PATIENT. PATIENT ESCORTED VIA WHEELCHAIR. PATIENT DISCHARGED NOW.
[2025-03-19] MEDS ORDERED: FAMOTIDINE 20MG TAB PO SCH (21:00)
== END 2025-03-19 18:18 | disposition home or self-care (01) ==
LOC: EDH 15:56 → INTOOBSV 17:27 → EDHIP 17:27 → 2AH 21:40
PROVIDERS: ADMIT Internal Medicine; ATTEND Internal Medicine
DX: I20.0 Unstable angina (principal); E66.9 Obesity, unspecified; I10 Essential (primary) hypertension; E78.5 Hyperlipidemia, unspecified; E11.9 Type 2 diabetes mellitus without complications; Z79.82 Long term (current) use of aspirin; Z79.899 Other long term (current) drug therapy; Z68.31 Body mass index [BMI] 31.0-31.9, adult
CPT/HCPCS: 96372; 84484 ×2; 80053; 83880; 85025; 82948 ×4; 36415 ×2; 71045; 93458; 99156; 99157; 80050; 83036; 83735; 80061; 85610; 85730; 93306; 93356; 76376; J1650; C1894 ×2; C1760; Q9965; G0378 ×2; G0379; J3010; J3490 ×2; J2250 ×2; J1644; Q9967; 84443; 99285; J0583

== ENCOUNTER 2025-08-04 01:03 | Inpatient (IN) | payer BC ==
[~2025-08-04] VITALS: Ht 167.6 cm; Wt 88.4 kg
[~2025-08-04 01:03] MED LIST: ASPI-1005 PO; ATOR10 PO; ATOR10TA69 PO; METF-446 PO; METF-910 PO; METO25TA6 PO; NITR0.4T50 SL; OLME20TA68 PO; RANO500T6 PO
[2025-08-04 01:30] LABS: IMMATURE GRANULOCYTE ABSOLUTE 0.02 K/uL (0-1); NUCLEATED RED BLOOD CELLS 0.0 % (0.0-0.19); PLATELET COUNT (AUTO) 222 K/uL (130-400); RED BLOOD CELL COUNT(AUTO) 5.29 MIL/uL (4.50-6.20); RED CELL DISTRIBUTION WIDTH 13.2 % (11.0-15.5); WHITE BLOOD COUNT (AUTO) 5.6 K/uL (4.8-10.8)
[2025-08-04 01:39] LABS: CREATININE 1.3 mg/dL (0.5-1.3); GLOMERULAR FILTR. RATE CALC 65.0 mL/min (>90); GLUCOSE,RANDOM 243.0 mg/dL (70-105); SODIUM SERUM 139.0 mmol/L (136-145); UREA NITROGEN, BLOOD 18.0 mg/dL (7-18)
[2025-08-04 01:45] LABS: CREATINE KINASE, TOTAL 119.0 U/L (21-232)
[2025-08-04] MEDS: ASPIRIN 81MG CHEW TAB PO ONE (01:52)
[2025-08-04] MEDS: NITROGLYCERIN 0.4 MG SL TAB SL PRN (01:52)
--- NOTE | 2025-08-04 02:23 | ERN ---
ED Note History of Present Illness Stated Complaint: CP Chief Complaint: Chest Pain Time Seen by MD: 01:14 Time Seen by Midlevel: 01:18 Dictation: 54-year-old male with a history of hypertension, diabetes , angina coming in with complaining of chest pain worse upon movement. Patient states he has been started about a couple hours ago. States he took one nitro at home but did not take his remodeling. patient states he has not been sick recently with cough, fever nausea or vomiting. States he has been compliant with his home medications. Allergies: Coded Allergies: No Known Drug Allergies (Unverified Allergy, Unknown, 02/19/25) Home Meds Reported Medications Aspirin (ASPIRIN 81MG CHEW TAB) 81 Mg Tab.chew, 1 TAB PO DAILY for 30 Days, #30 TAB 0 Refills 06/13/25 Nitroglycerin (Nitroglycerin) 0.4 Mg Tab.subl, 1 TAB SL AD PRN for CHEST PAIN, #25 TAB 0 Refills 1st sign of attack; may repeat every 5 mins; if pain persists after 3 in 15 m in, medical attention is recommended 06/13/25 Ranolazine (Ranolazine ER) 500 Mg Tab.er.12h, 1 TAB PO BID PRN for OTHER [SEE ORDER COMMENTS] for 30 Days, #60 TAB 0 Refills 06/13/25 Atorvastatin Calcium (Atorvastatin Calcium) 10 Mg Tablet, 1 TAB PO HS for 30 Days, #30 TAB 0 Refills 06/13/25 Metformin HCl (Metformin HCl ER) 500 Mg Tab.er.24h, 1 TAB PO BID for 30 Days, #60 TAB 0 Refills 06/13/25 Olmesartan Medoxomil (Olmesartan Medoxomil) 20 Mg Tablet, 5 MG PO DAILY for 30 Days, #30 TAB 0 Refills 03/18/25 Atorvastatin Calcium (LIPITOR) 20 Mg Tab, 1 TAB PO DAILY for 30 Days, #30 TAB 0 Refills 03/18/25 Metformin HCl (Metformin HCl) 1,000 Mg Tablet, 1 TAB PO BID for 30 Days, #60 TAB 0 Refills 03/18/25 Metoprolol Tartrate (Metoprolol Tartrate) 25 Mg Tablet, 1 TAB PO BID for 30 Days, #60 TAB 0 Refills 03/18/25 Past Medical History Past Medical History: Angina, Diabetes-Type II, High Cholesterol, Hypertension Surgical History: None Review of System Dictation Constitutional: Negative for fever,chills, and weight loss Eyes: Negative for injury, pain,redness, and discharge ENT: Negative for injury,pain or swelling Cardiovascular: Complaining of chest pain Respiratory: Negative for shortness of breath, cough, and wheezing, Abdomen/GI: Negative for abdominal pain, nausea, vomiting, diarrhea, and constipation Back: Negative for injury and pain : Negative for injury, bleeding and discharge MS/Extremity: Negative for injury and deformity Skin: Negative for rash, and discoloration Neuro: Negative for headache, weakness, numbness, tingling, and seizure Psych: Negative for suicide ideation, homicidal ideation, and hallucinations Review of Systems: was completed Initial Vital Sign VS Vital Signs Date Time Temp Pulse Resp B/P (MAP) Pulse Ox O2 Delivery O2 Flow Rate FiO2 08/04/25 01:05 97.2 74 20 140/89 96 Room Air 08/04/25 01:53 0 21 Physical Exam Dictation General: awake, alert, NAD Head/Face: Normocephalic, atraumatic Eyes: PERRL, EOMI, vision at baseline ENT: oral cavity clear, TMs clear, no signs of infection Neck: Trachea midline, supple, no nuchal rigidity Cardiovascular: RRR, normal S1/S2, No MRGs, no JVD pain is not reproducible upon palpation but is worsening when the patient tries to move. Respiratory: CTAB, no respiratory distress, No rales or wheezes Abdomen: Soft, non-tender, non-distended, normal bowel sounds, no guarding or rebound. Skin: Warm, dry, normal turgor, no rash MS/Extremity: Pulses equal, no cyanosis, neurovascular intact, FROM Neuro: COAx4, GCS 15, strength 5/5, CN 2-12 intact, normal cerebellar exam, normal gait, Psych: Normal behavior, mood, and affect normal Results (Laboratory/Radiology) Laboratory/Radiology Laboratory Tests Test 08/04/25 01:14 White Blood Count 5.6 K/uL (4.8-10.8) Red Blood Count 5.29 MIL/uL (4.50-6.20) Hemoglobin 15.3 g/dL (14.0-18.0) Hematocrit 44.8 % (42-54) Mean Corpuscular Volume 84.7 fL (79-99) Mean Corpuscular Hemoglobin 28.9 pg (27.0-33.0) Mean Corpuscular Hemoglobin Concent 34.2 g/dL (32.0-36.0) Red Cell Distribution Width 13.2 % (11.0-15.5) Platelet Count 222 K/uL (130-400) Mean Platelet Volume 10.5 fL (7.5-10.5) Immature Granulocyte % (Auto) 0.4 % (0-1) Neutrophils (%) (Auto) 56.8 % (40.0-77.0) Lymphocytes (%) (Auto) 31.6 % (21.0-51.0) Monocytes (%) (Auto) 8.3 % (3.0-13.0) Eosinophils (%) (Auto) 2.5 % (0.0-8.0) Basophils (%) (Auto) 0.4 % (0.0-5.0) Neutrophils # (Auto) 3.2 K/uL (1.8-7.7) Lymphocytes # (Auto) 1.8 K/uL (1.0-4.8) Monocytes # (Auto) 0.5 K/uL (0.1-1.0) Eosinophils # (Auto) 0.14 K/uL (0.00-0.70) Basophils # (Auto) 0.02 K/uL (0.00-0.20) Absolute Immature Granulocyte (auto 0.02 K/uL (0-1) Nucleated Red Blood Cells 0.0 % (0.0-0.19) Sodium Level 139 mmol/L (136-145) Potassium Level 3.7 mmol/L (3.5-5.1) Chloride Level 102 mmol/L (101-111) Carbon Dioxide Level 28 mmol/L (21-32) Blood Urea Nitrogen 18 mg/dL (7-18) Creatinine 1.3 mg/dL (0.5-1.3) Glomerular Filtration Rate Calc 65 mL/min (>90) Random Glucose 243 mg/dL (70-105) H Total Calcium 8.7 mg/dL (8.5-10.1) Total Creatine Kinase 119 U/L (21-232) Troponin I High Sensitivity 6 ng/L (4-75) Lipase 38 U/L (16-77) Labs Reviewed?: Yes EKG Comment: EKGs sinus rhythm rate 66, no STEMI interpreted by ER MD ED Course ED Course Orders Procedure Category Date Status Time Vital Signs Per CPOE 08/04/25 Transmitted Routine 01:05 Chest 1vw RAD 08/04/25 Taken 01:05 12 Lead Ekg Tracing- EKG 08/04/25 Logged Technical 01:05 Oxygen By Nc/Pulse Ox CPOE 08/04/25 Transmitted 01:05 Maintain Iv CPOE 08/04/25 Transmitted 01:05 Iv Insertion CPOE 08/04/25 Transmitted 01:05 Cardiac Monitoring CPOE 08/04/25 Transmitted 01:05 Pulse Oximetry With CPOE 08/04/25 Transmitted Vs And Prn 01:05 Cbc With Differential LAB 08/04/25 Complete 01:05 Activity: Br W/Brp CPOE 08/04/25 Transmitted With Assist 01:05 Creatine Kinase, Total LAB 08/04/25 Complete 01:05 Troponin I High LAB 08/04/25 Complete Sensitivity 01:05 Urinalysis Profile LAB 08/04/25 Logged 01:05 Basic Metabolic Panel LAB 08/04/25 Complete 01:05 Aspirin 81mg Chew Tab PHA 08/04/25 Complete (Aspirin 81mg Chew 01:30 Nitroglycerin 0.4mg PHA 08/04/25 In Process Sl Tab (Nitrostat) 01:30 Lipase LAB 08/04/25 Complete 01:58 Morphine 2mg Syg PHA 08/04/25 Complete (Morphine 2mg Syg) 02:30 Ondansetron 4mg Inj PHA 08/04/25 Complete (Zofran 4mg Inj) 02:30 Current Medications Medications (Trade) Dose Ordered Sig/Paola Route PRN Reason Start Time Stop Time Status Last Admin Dose Admin Aspirin (Aspirin 81mg Chew Tab) 324 mg ONCE ONCE PO 08/04/25 01:30 08/04/25 01:31 DC 08/04/25 01:52 Morphine Sulfate (morPHINE 2MG SYG) 2 mg ONCE ONCE IVP 08/04/25 02:30 08/04/25 02:32 DC Nitroglycerin (Nitrostat) 0.4 mg AD PRN SL CHEST PAIN 08/04/25 01:30 09/03/25 01:29 08/04/25 01:52 Ondansetron HCl (zoFRAN 4MG INJ) 4 mg ONCE ONCE IVP 08/04/25 02:30 08/04/25 02:32 DC Vital Signs Date Time Temp Pulse Resp B/P (MAP) Pulse Ox O2 Delivery O2 Flow Rate FiO2 08/04/25 01:53 97.5 72 20 135/88 94 Room Air* 0 21 08/04/25 01:05 97.2 74 20 140/89 96 Room Air HEART Score Response (Comments) Value History: Low suspicion (0) 0 EKG: Normal 0 Age: 45-65yrs (+1) 1 Risk Factors: 1-2 risk factors (+1) 1 Initial Troponin: Normal limit (0) 0 Total 2 Medical Decision Making MDM CBC shows no leukocytosis, no anemia, no thrombocytopenia. Chemistry shows no electrolyte abnormality. Normal kidney function. Patient has a hyperglycemia. Troponin is negative. EKGs shows no ST elevation or dysrhythmias. DX & DISP Disposition: Inpatient Departure Impression: Primary Impression: Chest pain with low risk for cardiac etiology Condition: Stable Referrals: MAKENNA CARRERA (PCP) WHITNEY VILLAVICENCIO CNP Aug 04, 2025 02:23 SHUBHAM BRANDT MD Aug 04, 2025 02:44
--- NOTE | 2025-08-04 03:45 | HMCIMG ---
EXAM: CR Chest, 1 view CLINICAL HISTORY: Chest pain. COMPARISON: 06/13/2025. FINDINGS: The lungs show no infiltrates or other acute findings. No pleural effusion or pneumothorax. The cardiomediastinal silhouette is within normal limits. No acute osseous abnormality. IMPRESSION: No acute cardiopulmonary process is evident. Compared to the prior study, there is no significant interval change. /[place]
--- NOTE | 2025-08-04 05:31 | HP ---
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 patient took ibuprofen which afforded no relief. Initially pain is tolerable and intermittent around 1a.m. Today patient reports pain came back and bonnie cribed as sharp and radiating associated with mild shortness of breaths patient decided to come to the ED for evaluation. Patient reports he was recently admitted on June 15, 2025 for unstable angina and as per patient he had a cardiac cath done on 03/2025 which revealed a nonobstructive CAD performed by Dr.Juan Naylor he said and patient was started on Ranolazine. Seen and examined patient in the Er awake,alert and coherent,appears comfortable.Patient reports chest pain has subsided but still there,3/10 pain level.Patient denies fever,chills,nausea,vomiting abdominal pain,cough,palpitation and shortness of breath. Latest vital signs temperature 97.5, crit 28, blood pressure 132/80 saturation 95% on room air. Labs: CBC normal. Glucose 243 troponin six lipase 38 rest of the chemistries normal. Chest x-ray result revealed no acute cardiopulmonary process. EKG result revealed sinus rhythm heart rate 66. While in the ER patient received aspirin 324 mg, morphine 2 mg IV, Zofran 4 mg IV. We will admit patient for further medical management. REVIEW OF SYSTEMS CONSTITUTIONAL: Denies fevers, chills, or night sweats. No unintentional weight loss reported. NEUROLOGICAL: Denies headache, amaurosis fugax, motor weakness, sensory deficit, vertigo/spinning sensation, gait abnormalities, or tremors. ENT: No hearing loss, otalgia, otorrhea, rhinitis, rhinorrhea, hoarseness, or sore throat. CARDIOVASCULAR: Exertional angina Denies dyspnea on exertion, orthopnea, paroxysmal nocturnal dyspnea, palpitations, life-threatening arrhythmias, claudication. PULMONARY: Complain of mild shortness of breaths at home Denies cough, phlegm/sputum, hemoptysis, pleuritic chest pain. SLEEP: Denies morning headaches, daytime somnolence or napping. Denies difficulty falling asleep, staying asleep, waking from sleep. Denies knowledge of snoring. GASTROINTESTINAL: Denies any type of dysphagia to either liquids or solids. Denies nausea, vomiting, pyrosis, early satiety, abdominal pain, diarrhea, constipation, or changes in stool consistency or caliber. Denies coffee-ground emesis, hematemesis, hematochezia, or melanotic stools. GENITOURINARY: Denies frequency, urgency, nocturia, hematuria or incontinence (Storage/Irritative symptoms.) Low urinary stream, straining to void, urinary intermittency or hesitancy, splitting of the voiding stream, terminal dribbling. ENDOCRINOLOGIC: Denies polyuria, polydipsia, polyphagia or heat/cold intolerances. HEMATOLOGIC: Denies thrombophilia/previous clots, or coagulopathy/bleeding disorders. ONCOLOGIC: Denies personal history of malignancy. DERMATOLOGIC: Denies rashes or pruritus. PSYCHIATRIC: Denies any suicidal or homicidal ideation. Denies hallucinations. PAST MEDICAL HISTORY: [ diabetes, hypertension , obesity, untreated obstructive sleep apnea and hyperlipidemia ] PAST SURGICAL HISTORY: [ Catheterization ] PAST SOCIAL HISTORY: [ Patient lives with . Works as a cattle and wheat farmer . Patient denies alcohol tobacco and recreational drug use] FAMILY HISTORY: [ Noncontributory] Coded Allergies: No Known Drug Allergies (Unverified Allergy, Unknown, 02/19/25) PHYSICAL EXAM GENERAL APPEARANCE: The patient is awake, alert, and oriented, in no acute cardiopulmonary distress. NEUROLOGICAL: Cranial nerves II-XII grossly intact. Motor is 5/5 in bilateral upper and lower extremities proximal to distal. No sensory deficits. HEENT: Face is symmetric. Pupils are equal and reactive. Extraocular movements are intact. NECK: Supple. No JVD. No thyromegaly. No submental, submandibular, pre- /postauricular, occipital or supraclavicular lymphadenopathy. CHEST: Normal chest expansion. No Telemetry. LUNGS: Absence of any rales, rhonchi or any wheezing. CARDIOVASCULAR: Regular. S1 and S2 normal. No appreciable rubs, murmurs or gallops. ABDOMEN: Soft, nontender, and nondistended. There is no rebound, voluntary guarding, or rigidity. : Deferred. No [place]. EXTREMITIES: Non-edematous and not cyanotic. No clubbing. Good capillary refill. SKIN: No skin breakdown. Vital Sign (Last 24 Hours) 08/04/25 08/04/25 01:53 03:58 Temp 97.5 Pulse 58 Resp 16 B/P (MAP) 132/80 Pulse Ox 95 O2 Delivery Room Air* O2 Flow Rate 0 FiO2 21 LABS: Laboratory: Test 08/04/25 01:14 Range/Units White Blood Count 5.6 4.8-10.8 K/uL Red Blood Count 5.29 4.50-6.20 MIL/uL Hemoglobin 15.3 14.0-18.0 g/dL Hematocrit 44.8 42-54 % Mean Corpuscular Volume 84.7 79-99 fL Mean Corpuscular Hemoglobin 28.9 27.0-33.0 pg Mean Corpuscular Hemoglobin Concent 34.2 32.0-36.0 g/dL Red Cell Distribution Width 13.2 11.0-15.5 % Platelet Count 222 130-400 K/uL Mean Platelet Volume 10.5 7.5-10.5 fL Immature Granulocyte % (Auto) 0.4 0-1 % Neutrophils (%) (Auto) 56.8 40.0-77.0 % Lymphocytes (%) (Auto) 31.6 21.0-51.0 % Monocytes (%) (Auto) 8.3 3.0-13.0 % Eosinophils (%) (Auto) 2.5 0.0-8.0 % Basophils (%) (Auto) 0.4 0.0-5.0 % Neutrophils # (Auto) 3.2 1.8-7.7 K/uL Lymphocytes # (Auto) 1.8 1.0-4.8 K/uL Monocytes # (Auto) 0.5 0.1-1.0 K/uL Eosinophils # (Auto) 0.14 0.00-0.70 K/uL Basophils # (Auto) 0.02 0.00-0.20 K/uL Absolute Immature Granulocyte (auto 0.02 0-1 K/uL Nucleated Red Blood Cells 0.0 0.0-0.19 % Sodium Level 139 136-145 mmol/L Potassium Level 3.7 3.5-5.1 mmol/L Chloride Level 102 101-111 mmol/L Carbon Dioxide Level 28 21-32 mmol/L Blood Urea Nitrogen 18 7-18 mg/dL Creatinine 1.3 0.5-1.3 mg/dL Glomerular Filtration Rate Calc 65 >90 mL/min Random Glucose 243 H 70-105 mg/dL Total Calcium 8.7 8.5-10.1 mg/dL Total Creatine Kinase 119 21-232 U/L Troponin I High Sensitivity 6 4-75 ng/L Lipase 38 16-77 U/L Current Medications Medications (Trade) Dose Ordered Sig/Paola Route PRN Reason Start Time Stop Time Status Last Admin Dose Admin Nitroglycerin (Nitrostat) 0.4 mg AD PRN SL CHEST PAIN 08/04/25 01:30 09/03/25 01:29 08/04/25 01:52 0.4 MG DIAGNOSTICS / RADIOLOGY: [ ] ASSESSMENT: Chest pain rule out ACS POA Hypertension POA Uncontrolled diabetes POA Hyperlipidemia POA Nonobstructive Coronary artery disease POA Obesity POA Untreated obstructive sleep apnea POA PLAN: We will admit patient in medical telemetry We will start on heart healthy diet We will continue home dose aspirin 81 mg, atorvastatin 20 mg p.o. daily and ranolazine 500 mg We will start NS @ 100 ml / hr x one bag and re evaluate We will start on famotidine 20 mg p.o. daily for GI prophylaxis We will replace electrolytes as needed per protocol We will start on insulin sliding scale AC & HS with hypoglycemia protocol We will add prn medication for fever,pain,cough , nausea and vomiting We will reconcile home meds once medlist available Will trend troponin q.6 x3 We will request labs in am We will defer Cardiology consultation with day shift rounding MD Further orders to follow depending on above results Case discussed with attending physician and came up with above treatment and plan of care. ADVANCED CARE PLANNING 1. Which of the following were discussed? Hospice Care - No Therapeutic options - Yes Advance Directives - No Other discussions - 2. Discussed with who? Patient 3. Voluntary nature of this service was explained to the patient? Yes 4. Amount of time spent - __23 min 5. Reviewed by Physician? (if this service was performed by NPP) Yes Patient seen and examined by me. Agree with note by CHEMICAL PREPARER SEE ADDITIONAL ORDERS PER CHART DISCUSSED WITH NURSING STAFF CUCO STEWART Aug 04, 2025 05:31
[2025-08-04] MEDS ORDERED: DEXTROSE 50%-WATER 50 ML DISP.SYRIN IV PRN (06:00)
[2025-08-04] MEDS ORDERED: PoTASSium chloRIDE 20MEQ ER 20 MEQ ERTAB PO PRN (06:00)
[2025-08-04] MEDS ORDERED: NITROGLYCERIN 0.4 MG SL TAB SL PRN (06:00)
[2025-08-04] MEDS ORDERED: RANOLAZINE 500 MG TAB.SR.12H PO PRN (06:00)
[2025-08-04] MEDS ORDERED: PoTASSium chl 10% ELIXIR 20MEQ 20 MEQ/15 ML UDCUP PO PRN (06:00)
[2025-08-04] MEDS ORDERED: MAGNESIUM 2GM PREMIX 50ML 50 ML IV PRN (06:00)
[2025-08-04] MEDS ORDERED: GLUCAGON 1MG KIT 1 MG ML IM PRN (06:00)
--- NOTE | 2025-08-04 06:12 | EKG ---
[facility] Test Date: 2025-08-04 Test Time: 00:15:29 Pat Name: SHAHID KAUR Department: [facility] [place] [facility] [id number] Room: ED 18 Gender: M Manager Social Work: [id number] : 1970 Requested By: SHUBHAM BRANDT Order Number: [id number] Reading MD: Ken Naylor Measurements Intervals [place] Rate: 66 P: 16 [place]: 130 QRS: -3 QRSD: 78 T: 19 QT: 341 QTc: 356 Interpretive Statements Sinus rhythm Compared to ECG 06/13/2025 16:50:11 No significant changes Electronically Signed On 08-04-2025 18:16:12 MATERIALS SUPERVISOR by Ken Naylor Please click the below link to view image of tracing.
[2025-08-04] MEDS ORDERED: RANO10005 PO (06:33)
[2025-08-04] MEDS: 0.9%NACL 1000ML 1,000 ML IV SCH (06:36)
--- NOTE | 2025-08-04 10:26 | NUR ---
DCP: HOME Pt works at [email or web address], drives and is active. Lives at home with Clarissa Vargas [phone]. Pt denies need for assist with ADLS, transportation, ambulation. Uses no DME or in home care services. PCP is Laurent Gregory and uses [facility] for rx needs. Denies dc needs, will return home at dc Addendum: 08/04/25 at 1028 by MICHELLE THURMAN SS Amended: Links added.
[2025-08-04] MEDS: FAMOTIDINE 20MG TAB PO SCH (12:51)
[2025-08-04] MEDS: ASPIRIN 81MG CHEW TAB PO SCH (12:51)
[2025-08-04 14:27] LABS: APPEARANCE,URINE CLEAR (CLEAR); GLUCOSE, URINE (UA) 200 mg/dL (NEGATIVE); LEUKOCYTE ESTERASE ,URINE NEGATIVE Leu/uL (NEGATIVE); NITRATE,URINE NEGATIVE (NEGATIVE); OCCULT BLOOD,URINE NEGATIVE (NEGATIVE)
[2025-08-04 14:30] LABS: ADD UA MICROSCOPIC YES
[2025-08-04 14:42] LABS: SQUAMOUS EPITHELIAL CELL,UR RARE /HPF (0-2)
[2025-08-04 20:14] VITALS: BP 146/94; PULSE 63; RESP 18; TEMP 97.6
[2025-08-04 22:04] VITALS: O2SAT 96
[2025-08-04 23:18] VITALS: BP 156/93; PULSE 61; RESP 18; TEMP 97.5
[2025-08-05] VITALS: BP 138/80; PULSE 68; RESP 18; TEMP 97.5
[2025-08-05 04:00] VITALS: BP 123/89; PULSE 71; RESP 18; TEMP 97.5
[2025-08-05 08:00] VITALS: BP 127/81; PULSE 66; RESP 16; TEMP 97.8; O2SAT 96
[2025-08-05 08:12] LABS: IMMATURE GRANULOCYTE ABSOLUTE 0.02 K/uL (0-1); NUCLEATED RED BLOOD CELLS 0.0 % (0.0-0.19); PLATELET COUNT (AUTO) 215 K/uL (130-400); RED BLOOD CELL COUNT(AUTO) 5.41 MIL/uL (4.50-6.20); RED CELL DISTRIBUTION WIDTH 13.3 % (11.0-15.5); WHITE BLOOD COUNT (AUTO) 6.0 K/uL (4.8-10.8)
[2025-08-05 08:30] LABS: ASPARTATE AMINOTRANSFERASE 19.0 U/L (10-37); CREATININE 1.3 mg/dL (0.5-1.3); GLOMERULAR FILTR. RATE CALC 65.0 mL/min (>90); GLUCOSE,RANDOM 151.0 mg/dL (70-105); SODIUM SERUM 143.0 mmol/L (136-145); TOTAL PROTEIN, SERUM 6.8 g/dL (6.0-8.3); UREA NITROGEN, BLOOD 14.0 mg/dL (7-18)
--- NOTE | 2025-08-05 11:47 | PN ---
[facility] PROGRESS NOTE Date of Service: Aug 05, 2025 Time of Service: 11:41 SUBJECTIVE: [Patient evaluated in his room this morning. He continues to report persistent pain localized to the left lower quadrant of the abdomen, with radiation to the left paraspinal region of the back. He describes the pain as constant and moderately severe. No new complaints of chest pain, shortness of breath, nausea, or vomiting. Denies fever or chills. ] Objective: Patient alert and oriented, in no acute distress at rest. Vital signs stable. Abdomen: Tenderness to palpation in the left lower quadrant, no rebound or guarding noted. Back: Mild tenderness to palpation along the left paraspinal area, no costovertebral angle tenderness. No new skin changes or edema. Cardiac and pulmonary exams remain unremarkable. REVIEW OF SYSTEMS CONSTITUTIONAL: Denies fevers, chills, or night sweats. No unintentional weight loss reported. NEUROLOGICAL: Denies headache, amaurosis fugax, motor weakness, sensory deficit, vertigo/spinning sensation, gait abnormalities, or tremors. ENT: No hearing loss, otalgia, otorrhea, rhinitis, rhinorrhea, hoarseness, or sore throat. CARDIOVASCULAR: Exertional angina Denies dyspnea on exertion, orthopnea, paroxysmal nocturnal dyspnea, palpitations, life-threatening arrhythmias, claudication. PULMONARY: Complain of mild shortness of breaths at home Denies cough, phlegm/sputum, hemoptysis, pleuritic chest pain. SLEEP: Denies morning headaches, daytime somnolence or napping. Denies difficulty falling asleep, staying asleep, waking from sleep. Denies knowledge of snoring. GASTROINTESTINAL: Denies any type of dysphagia to either liquids or solids. Denies nausea, vomiting, pyrosis, early satiety, abdominal pain, diarrhea, constipation, or changes in stool consistency or caliber. Denies coffee-ground emesis, hematemesis, hematochezia, or melanotic stools. GENITOURINARY: Denies frequency, urgency, nocturia, hematuria or incontinence (Storage/Irritative symptoms.) Low urinary stream, straining to void, urinary intermittency or hesitancy, splitting of the voiding stream, terminal dribbling. ENDOCRINOLOGIC: Denies polyuria, polydipsia, polyphagia or heat/cold intolerances. HEMATOLOGIC: Denies thrombophilia/previous clots, or coagulopathy/bleeding disorders. ONCOLOGIC: Denies personal history of malignancy. DERMATOLOGIC: Denies rashes or pruritus. PSYCHIATRIC: Denies any suicidal or homicidal ideation. Denies hallucinations. PHYSICAL EXAM GENERAL APPEARANCE: The patient is awake, alert, and oriented, in no acute cardiopulmonary distress. NEUROLOGICAL: Cranial nerves II-XII grossly intact. Motor is 5/5 in bilateral upper and lower extremities proximal to distal. No sensory deficits. HEENT: Face is symmetric. Pupils are equal and reactive. Extraocular movements are intact. NECK: Supple. No JVD. No thyromegaly. No submental, submandibular, pre-/post auricular, occipital or supraclavicular lymphadenopathy. CHEST: Normal chest expansion. No Telemetry. LUNGS: Absence of any rales, rhonchi or any wheezing. CARDIOVASCULAR: Regular. S1 and S2 normal. No appreciable rubs, murmurs or gallops. ABDOMEN: Soft, nontender, and nondistended. There is no rebound, voluntary guarding, or rigidity. : Deferred. No [place]. EXTREMITIES: Non-edematous and not cyanotic. No clubbing. Good capillary refill. SKIN: No skin breakdown. Vital Signs (last 8hr) Date Time Temp Pulse Resp B/P (MAP) Pulse Ox O2 Delivery O2 Flow Rate FiO2 08/05/25 08:00 97.9 66 16 127/81 96 Room Air 08/05/25 04:00 97.5 71 18 123/89 97 Room Air LABS: Laboratory: Test 08/05/25 05:30 08/05/25 05:13 08/04/25 17:17 08/04/25 14:12 Range/Units White Blood Count 6.0 4.8-10.8 K/uL Red Blood Count 5.41 4.50-6.20 MIL/uL Hemoglobin 15.3 14.0-18.0 g/dL Hematocrit 46.5 42-54 % Mean Corpuscular Volume 86.0 79-99 fL Mean Corpuscular Hemoglobin 28.3 27.0-33.0 pg Mean Corpuscular Hemoglobin Concent 32.9 32.0-36.0 g/dL Red Cell Distribution Width 13.3 11.0-15.5 % Platelet Count 215 130-400 K/uL Mean Platelet Volume 10.4 7.5-10.5 fL Immature Granulocyte % (Auto) 0.3 0-1 % Neutrophils (%) (Auto) 63.0 40.0-77.0 % Lymphocytes (%) (Auto) 26.5 21.0-51.0 % Monocytes (%) (Auto) 7.5 3.0-13.0 % Eosinophils (%) (Auto) 2.5 0.0-8.0 % Basophils (%) (Auto) 0.2 0.0-5.0 % Neutrophils # (Auto) 3.8 1.8-7.7 K/uL Lymphocytes # (Auto) 1.6 1.0-4.8 K/uL Monocytes # (Auto) 0.5 0.1-1.0 K/uL Eosinophils # (Auto) 0.15 0.00-0.70 K/uL Basophils # (Auto) 0.01 0.00-0.20 K/uL Absolute Immature Granulocyte (auto 0.02 0-1 K/uL Nucleated Red Blood Cells 0.0 0.0-0.19 % Sodium Level 143 136-145 mmol/L Potassium Level 4.0 3.5-5.1 mmol/L Chloride Level 107 101-111 mmol/L Carbon Dioxide Level 25 21-32 mmol/L Blood Urea Nitrogen 14 7-18 mg/dL Creatinine 1.3 0.5-1.3 mg/dL Glomerular Filtration Rate Calc 65 >90 mL/min Random Glucose 151 H 70-105 mg/dL Total Calcium 8.0 L 8.5-10.1 mg/dL Magnesium Level 1.90 1.80-2.40 mg/dL Total Bilirubin 1.2 H 0.2-1.0 mg/dL Aspartate Amino Transf (AST/SGOT) 19 10-37 U/L Alanine Aminotransferase (ALT/SGPT) 38 12-78 U/L Alkaline Phosphatase 72 50-136 U/L Total Protein 6.8 6.0-8.3 g/dL Albumin 3.5 3.5-5.0 g/dL Whole Blood Glucose 142 H 70-110 MG/DL Troponin I High Sensitivity 5 4-75 ng/L Urine Color LIGHT-YELLOW YELLOW Urine Appearance CLEAR CLEAR Urine pH 5.5 5.0-8.0 Urine Specific [place] 1.017 1.001-1.031 Urine Protein NEGATIVE NEGATIVE mg/dL Urine Glucose (UA) 200 H NEGATIVE mg/dL Urine Ketones NEGATIVE NEGATIVE mg/dL Urine Occult Blood NEGATIVE NEGATIVE Urine Nitrate NEGATIVE NEGATIVE Urine Bilirubin NEGATIVE NEGATIVE mg/dL Urine Urobilinogen 0.2 0.2-1.0 mg/dL Urine Leukocyte Esterase NEGATIVE NEGATIVE [place]/uL Urine RBC 0-1 0-1 /HPF Urine WBC 0-1 0-1 /HPF Urine Squamous Epithelial Cells RARE 0-2 /HPF Urine Bacteria RARE None Seen /HPF Test 08/04/25 06:06 08/04/25 01:14 Range/Units Erythrocyte Sedimentation Rate 7 0-20 MM/HR Total Creatine Kinase 119 21-232 U/L Lipase 38 16-77 U/L Current Medications Medications (Trade) Dose Ordered Sig/Paola Route PRN Reason Start Time Stop Time Status Last Admin Dose Admin Acetaminophen (TYLenol 325MG TAB) 650 mg Q4H PRN PO MILD PAIN (1-3) 08/04/25 06:00 09/03/25 05:59 Acetaminophen (TYLenol 325MG TAB) 650 mg Q6H PRN PO TEMPERATURE GREATER THAN 101.5 08/04/25 06:00 09/03/25 05:59 08/05/25 09:06 650 MG Aspirin (Aspirin 81mg Chew Tab) 81 mg DAILY PO 08/04/25 09:00 09/03/25 08:59 08/05/25 09:06 81 MG Atorvastatin Calcium (LIPItor 10MG) 20 mg DAILY PO 08/04/25 09:00 08/04/25 09:41 DC Atorvastatin Calcium (LIPItor 20MG) 20 mg HS PO 08/04/25 21:00 09/03/25 20:59 08/04/25 21:48 20 MG Dextrose (D50w) 50 ml AD PRN IV HYPOGLYCEMIA PROTOCOL 08/04/25 06:00 09/03/25 05:59 Famotidine (Pepcid 20mg Tab) 20 mg DAILY PO 08/04/25 09:00 09/03/25 08:59 08/05/25 09:06 20 MG Glucagon (Glucagon 1mg Kit) 1 mg AD PRN IM HYPOGLYCEMIA PROTOCOL 08/04/25 06:00 09/03/25 05:59 Insulin Human Regular (humuLIN R 100 UNIT/ML 3ML) INSULIN SLIDING SCAL... ACHS SQ 08/04/25 07:30 09/03/25 07:29 08/04/25 21:48 3 UNIT Losartan Potassium (CozAAR 25MG TAB) 25 mg DAILY PO 08/04/25 09:00 09/03/25 08:59 08/05/25 09:05 25 MG Magnesium Sulfate 50 ml @ 0 mls/hr PROTOCOL PRN IV PAIN LEVEL 1 TO 3 08/04/25 06:00 09/03/25 05:59 Morphine Sulfate (morPHINE 2MG SYG) 2 mg Q4H PRN IV MODERATE PAIN (4-6) 08/04/25 06:00 08/11/25 05:59 08/05/25 09:38 2 MG Nitroglycerin (Nitrostat) 0.4 mg AD PRN SL CHEST PAIN 08/04/25 01:30 08/04/25 09:40 DC 08/04/25 01:52 0.4 MG Nitroglycerin (Nitrostat) 0.4 mg PROTOCOL PRN SL CHEST PAIN 08/04/25 06:00 09/03/25 05:59 Ondansetron HCl (zoFRAN 4MG INJ) 4 mg Q6H PRN IV NAUSEA/VOMITING 08/04/25 06:00 09/03/25 05:59 Potassium Chloride 100 ml @ 100 mls/hr AD PRN IV POTASSIUM PROTOCOL 08/04/25 06:00 09/03/25 05:59 Potassium Chloride (K-Dur/Klor-Con 20meq) 20 meq AD PRN PO POTASSIUM PROTOCOL 08/04/25 06:00 09/03/25 05:59 Potassium Chloride (KCl 10% Elixir 20meq/15ml) 20 meq AD PRN PO POTASSIUM PROTOCOL 08/04/25 06:00 09/03/25 05:59 Ranolazine (Ranexa) 500 mg BID PRN PO OTHER [SEE ORDER COMMENTS] 08/04/25 06:00 08/04/25 09:41 DC Sodium Chloride 1,000 ml @ 100 mls/hr Q10H IV 08/04/25 06:00 08/04/25 23:48 DC 08/04/25 15:46 100 MLS/HR DIAGNOSTICS / RADIOLOGY: [ ] ASSESSMENT: Intractable pain, POA Persistent left lower quadrant abdominal pain with radiation to left paraspinal regionetiology unclear, further evaluation warranted, POA Chest pain ruled out ACS POA Hypertension POA Uncontrolled diabetes POA Hyperlipidemia POA Nonobstructive Coronary artery disease POA Obesity POA Untreated obstructive sleep apnea POA PLAN: Continue admission to medical telemetry Continue IV pain management as ordered. Order CT abdomen without contrast to further evaluate etiology of abdominal and back pain. Monitor for any changes in clinical status. Continue heart healthy diet We will continue home dose aspirin 81 mg, atorvastatin 20 mg p.o. daily and ranolazine 500 mg C/w 100 ml / hr x one bag and re evaluate C/wn famotidine 20 mg p.o. daily for GI prophylaxis We will continue to replace electrolytes as needed per protocol C/w nsulin sliding scale AC & HS with hypoglycemia protocol C/w prn medication for fever,pain,cough , nausea and vomiting Labs tomorrow Case discussed with Dr. Scott, above plan was formulated ATTESTATION BY PHYSICIAN I have seen and examined the patient. I reviewed the documentation, medical decision making, and treatment plan as noted by the mid-level provider above. I agree with the findings and plan of care. PABLO SCOTT MD, JANICE B [facility] Aug 05, 2025 11:46
[2025-08-05 12:00] VITALS: BP 127/86; PULSE 79; RESP 18; TEMP 97.6
[2025-08-05 16:00] VITALS: BP 117/78; PULSE 65; RESP 19; TEMP 98
[2025-08-05 20:00] VITALS: BP 135/95; PULSE 80; RESP 18; TEMP 98.2
--- NOTE | 2025-08-05 21:30 | HMCIMG ---
EXAM: CT ABDOMEN AND PELVIS WITHOUT INTRAVENOUS CONTRAST Technique: Multidetector helical computed tomography from the diaphragms through the inguinal region with axial acquisition and coronal/sagittal reformations; CTDIvol 10 mGy; DLP 638.80 mGy???cm. Dose-reduction techniques applied (automatic exposure control; patient-size???adjusted mA/kV; iterative reconstruction). Clinical Information: Left lower-quadrant abdominal pain. Findings: Lung bases: No pleural effusion, lobar collapse, or consolidation in the visualized portions. Liver: Normal size and morphology with smooth margins; diffuse hepatic steatosis; no focal hepatic lesion or biliary dilatation. Gallbladder and biliary tree: Normal wall thickness; no gallstone or pericholecystic inflammation; cystic duct unremarkable. Pancreas: Normal size and attenuation; main pancreatic duct not dilated; no peripancreatic inflammatory change. Spleen: Normal size and attenuation; no focal lesion. Adrenals: Normal morphology bilaterally. Kidneys and ureters: Kidneys normal in size, shape, and position; a few non-obstructive bilateral renal calculi measuring 1???2 mm; an 11 mm simple cortical cyst in the right kidney; no hydronephrosis or hydroureter; corticomedullary differentiation preserved. Stomach and duodenum: Stomach distended and normal in contour; gastroesophageal junction and pylorus unremarkable; duodenum normal. Small bowel: Normal distribution and caliber; normal wall thickness and mucosal pattern; mesenteric fat and omentum unremarkable. Colon and appendix: Sigmoid colon diverticulosis without diverticulitis; no computed-tomography evidence of acute appendicitis; rectum and colon contain fecal material without obstructive pattern. Peritoneum and mesentery: No free intraperitoneal fluid or free air. Lymph nodes: No pathologically enlarged lymph nodes. Retroperitoneum and vasculature: Aorta and inferior vena cava normal in course and caliber. Pelvic organs: Urinary bladder normal in wall thickness and lumen; prostate normal. Abdominal wall/soft tissues: Small bilateral fat-containing inguinal hernias. Osseous structures: No acute osseous abnormality. IMPRESSION: 1. Sigmoid diverticulosis without diverticulitis; no acute intra-abdominal or pelvic abnormality identified. 2. Bilateral non-obstructive nephrolithiasis (1-2 mm) and an 11 mm simple right renal cortical cyst; no obstructive uropathy. 3. Hepatic steatosis. 4. Small bilateral fat-containing inguinal hernias. /Jean
[2025-08-06] VITALS: BP 129/77; PULSE 73; RESP 19; TEMP 98.1
[2025-08-06 04:00] VITALS: BP 122/83; PULSE 70; RESP 18; TEMP 98.7
[2025-08-06 05:08] LABS: NUCLEATED RED BLOOD CELLS 0.0 % (0.0-0.19); PLATELET COUNT (AUTO) 216.0 K/uL (130-400); RED BLOOD CELL COUNT(AUTO) 5.59 MIL/uL (4.50-6.20); RED CELL DISTRIBUTION WIDTH 13.2 % (11.0-15.5); WHITE BLOOD COUNT (AUTO) 6.5 K/uL (4.8-10.8)
[2025-08-06 05:25] LABS: CREATININE 1.3 mg/dL (0.5-1.3); GLOMERULAR FILTR. RATE CALC 65.0 mL/min (>90); GLUCOSE,RANDOM 152.0 mg/dL (70-105); SODIUM SERUM 141.0 mmol/L (136-145); UREA NITROGEN, BLOOD 17.0 mg/dL (7-18)
[2025-08-06 08:00] VITALS: BP 123/78; PULSE 66; RESP 18; TEMP 97.8
[2025-08-06 12:02] VITALS: BP 126/86; PULSE 71; RESP 17; TEMP 98
--- NOTE | 2025-08-06 13:08 | DS ---
Discharge Summary Hospital Course Summary: Mr. Cedric Kohli, a 54-year-old male with a history of diabetes mellitus, hypertension, obesity, untreated obstructive sleep apnea, hyperlipidemia, and nonobstructive coronary artery disease, presented to the emergency department with acute onset of left-sided chest pain that began while shoveling at work. The pain was initially intermittent and tolerable but recurred as sharp and radiating, associated with mild shortness of breath, prompting his visit to the ED. He denied associated symptoms such as fever, chills, nausea, vomiting, abdominal pain, cough, palpitations, or significant dyspnea. On arrival, he was hemodynamically stable and in no acute distress. His chest pain had subsided to a mild level (3/10). Initial workup included a normal CBC, elevated glucose (243 mg/dL), normal troponin, and unremarkable chest X-ray and EKG (sinus rhythm, HR 66). He received aspirin, morphine, and Zofran in the ED. Given his cardiac history and recent admission for unstable angina (with a prior cath showing nonobstructive CAD), he was admitted to medical telemetry for further monitoring and management. During hospitalization, Mr. Kohli developed persistent left lower quadrant abdominal pain radiating to the left paraspinal region. The pain was constant and moderately severe, without associated chest pain, shortness of breath, nausea, vomiting, fever, or chills. Physical exam revealed localized tenderness in the left lower quadrant and mild paraspinal tenderness, but no rebound, guarding, or costovertebral angle tenderness. Cardiac and pulmonary exams remained unremarkable. Serial laboratory studies showed stable blood counts, persistent hyperglycemia, and normal renal and hepatic function aside from mild hepatic steatosis and a slightly elevated total bilirubin. Urinalysis was notable for glucosuria but otherwise unremarkable. Troponin levels remained within normal limits, effectively ruling out acute coronary syndrome. A CT scan of the abdomen and pelvis without contrast was obtained to evaluate the etiology of his abdominal and back pain. Imaging revealed sigmoid diverticulosis without evidence of diverticulitis, bilateral non-obstructive renal calculi (12 mm), an 11 mm simple right renal cortical cyst, hepatic steatosis, and small bilateral fat-containing inguinal hernias. No acute intra- abdominal or pelvic pathology was identified. Throughout his stay, Mr. Kohli remained hemodynamically stable and afebrile. His pain improved with IV analgesia, and he did not develop any new symptoms. His home medications were continued, including aspirin, atorvastatin, ranol azine, losartan, and sliding scale insulin. Supportive care included a heart- healthy diet, GI prophylaxis with famotidine, and electrolyte replacement as needed. By the time of discharge, Mr. Kohli reported significant improvement in his abdominal and back pain, with no recurrence of chest pain or other concerning symptoms. He remained stable on room air, with normal vital signs and physical exam. He was deemed stable for discharge with instructions to follow up with his primary care provider within 23 days. Summary of [facility] Events: Admission for chest pain, rule out ACS: ACS ruled out with serial troponins and EKGs. Development of persistent LLQ abdominal and back pain: Evaluated with CT, which showed diverticulosis without diverticulitis and non-obstructive nephrolithiasis. No acute findings on imaging or labs. Pain improved with conservative management. Discharged in stable condition with follow-up arranged. Assessment/Plan: Discharge Diagnoses: Chest pain, ruled out ACS Persistent left lower quadrant abdominal pain, likely secondary to diverticulosis and/or musculoskeletal etiology Hypertension Uncontrolled diabetes mellitus Hyperlipidemia Nonobstructive coronary artery disease Obesity Untreated obstructive sleep apnea Hepatic steatosis Bilateral non-obstructive nephrolithiasis Small bilateral inguinal hernias ASSESSMENT: Intractable pain, POA Persistent left lower quadrant abdominal pain with radiation to left paraspinal regionetiology unclear, further evaluation warranted, POA Chest pain ruled out ACS POA Hypertension POA Uncontrolled diabetes POA Hyperlipidemia POA Nonobstructive Coronary artery disease POA Obesity POA Untreated obstructive sleep apnea POA Discharge Instructions: Discharge Plan: Resume home medications as listed Continue heart-healthy diet Monitor blood glucose and blood pressure Follow up with PCP in 23 days Return to ED for any recurrence of severe pain, chest pain, shortness of breath, fever, or other concerning symptoms Home Medications: Reported Medications Ranolazine (Ranolazine ER) 1,000 Mg Tab.er.12h, 1 TAB PO BID for 30 Days, #60 TAB 0 Refills 08/04/25 Metoprolol Tartrate (Metoprolol Tartrate) 25 Mg Tablet, 2 TAB PO BID for 30 Days, #60 TAB 0 Refills 08/04/25 Aspirin (ASPIRIN 81MG CHEW TAB) 81 Mg Tab.chew, 1 TAB PO DAILY for 30 Days, #30 TAB 0 Refills 06/13/25 Nitroglycerin (Nitroglycerin) 0.4 Mg Tab.subl, 1 TAB SL AD PRN for CHEST PAIN, #25 TAB 0 Refills 1st sign of attack; may repeat every 5 mins; if pain persists after 3 in 15 min, medical attention is recommended 06/13/25 Ranolazine (Ranolazine ER) 500 Mg Tab.er.12h, 1 TAB PO BID PRN for OTHER [SEE ORDER COMMENTS] for 30 Days, #60 TAB 0 Refills 06/13/25 Atorvastatin Calcium (Atorvastatin Calcium) 10 Mg Tablet, 1 TAB PO HS for 30 Days, #30 TAB 0 Refills 06/13/25 Metformin HCl (Metformin HCl ER) 500 Mg Tab.er.24h, 1 TAB PO BID for 30 Days, #60 TAB 0 Refills 06/13/25 Olmesartan Medoxomil (Olmesartan Medoxomil) 20 Mg Tablet, 5 MG PO DAILY for 30 Days, #30 TAB 0 Refills 03/18/25 Atorvastatin Calcium (LIPITOR) 20 Mg Tab, 1 TAB PO DAILY for 30 Days, #30 TAB 0 Refills 03/18/25 Metformin HCl (Metformin HCl) 1,000 Mg Tablet, 1 TAB PO BID for 30 Days, #60 TAB 0 Refills 03/18/25 Metoprolol Tartrate (Metoprolol Tartrate) 25 Mg Tablet, 1 TAB PO BID for 30 Days, #60 TAB 0 Refills 03/18/25 Time spent arranging discharge: 31-60 minutes ATTESTATION BY PHYSICIAN I have seen and examined the patient. I reviewed the documentation, medical decision making, and treatment plan as noted by the mid-level provider above. I agree with the findings and plan of care. PABLO SCOTT MD, JANICE B [facility] Aug 06, 2025 13:08
--- NOTE | 2025-08-06 13:32 | NUR ---
DISCHARGE DC'D IV. NO COMPLICATIONS. PT AWARE TO FOLLOW UP WITH PCP WITHIN 2-3 DAYS. ATTEMPT TO CALL OFFICE AND NO ANSWER. PHONE NUMBER PROVIDED. NO QUESTIONS AT THIS TIME. PT DENIES PAIN AT THIS TIME.
== END 2025-08-06 13:41 | disposition home or self-care (01) | DRG 206 ==
LOC: EDH 01:03 → EDHIP 05:34 → 3BH 22:20
PROVIDERS: ADMIT Internal Medicine; ATTEND Internal Medicine
DX: M94.0 Chondrocostal junction syndrome [Tietze] (principal); E11.65 Type 2 diabetes mellitus with hyperglycemia; I10 Essential (primary) hypertension; E66.9 Obesity, unspecified; K76.0 Fatty (change of) liver, not elsewhere classified; K57.30 Diverticulosis of large intestine without perforation or abscess without bleeding; I25.10 Atherosclerotic heart disease of native coronary artery without angina pectoris; G47.33 Obstructive sleep apnea (adult) (pediatric); N20.0 Calculus of kidney; N28.1 Cyst of kidney, acquired; K40.20 Bilateral inguinal hernia, without obstruction or gangrene, not specified as recurrent; R07.89 Other chest pain; E78.00 Pure hypercholesterolemia, unspecified; Z79.4 Long term (current) use of insulin; Z79.82 Long term (current) use of aspirin; Z79.899 Other long term (current) drug therapy; Z68.31 Body mass index [BMI] 31.0-31.9, adult
CPT/HCPCS: 36415; 71045; 74176; 80048; 80053; 81001; 82550; 82948; 83690; 83735; 84484; 85025; 85027; 85651; 93005; 99285; G0378; J1815; J2270; J2405; J7030